=== PATIENT | male | born 1950 | race Caucasian/White ===

== ENCOUNTER → 2019-09-18 09:01 | Outpatient (CLI) | payer MEDICARE, OTHER, SELFPAY ==
--- NOTE | 2019-09-18 09:07 | DI.MRI.S_ITS ---
PROCEDURE: MR HEAD/BRAIN WO/W CON INDICATIONS: lung cancer with brain mets. TECHNIQUE: Noncontrast axial T1 spin echo, axial T2 fast spin echo, sagittal and axial FLAIR, coronal T2 fast spin echo, axial gradient echo, axial diffusion and ADC through the brain. After the administration of contrast, axial and coronal T1 spin echo with fat saturation through the brain. COMPARISON: Outside Facility, RG, MRI HEAD W/WO CONTRAST, 06/16/2019, 14:48. FINDINGS: Image quality: Excellent. CSF spaces: Basal cisterns are patent. No extra-axial fluid collections. Ventricles are normal in size and shape. Brain: No midline shift. No intracranial bleeds or masses. No abnormal intracranial enhancement. There is cerebral volume loss for age. There is periventricular white matter chronic small vessel ischemic change. The brainstem appears normal. Diffusion-weighted images demonstrate a punctate area of hyperintensity with equivocal ADC signal in the left thalamus. This corresponds to a focus of hyperintense T2 signal and no visible enhancement. No chronic ischemic insults. Normal intravascular flow voids are present. Skull and face: Calvarial marrow is normal in signal. Orbits appear normal. Sinuses: Sinuses appear clear. Mastoids demonstrate bilateral fluid. Recommend correlation central mastoiditis. IMPRESSION: 1. No areas of abnormal enhancement. 2. Punctate focus of restricted diffusion within the left thalamus with equivocal ADC signal. Finding is suspicious for T2 shine through of an old focus of infarction. Dictated by: Cheli Suggs M.D. on 09/18/2019 at 11:41 Approved by: Cheli Suggs M.D. on 09/18/2019 at 11:52
--- NOTE | 2019-09-18 10:50 | DI.CT.S_ITS ---
PROCEDURE: CT CHEST ABD PEL W CON INDICATIONS: lung cancer TECHNIQUE: After the administration of oral and intravenous contrast, 5 mm thick sections acquired from the lung apices to the symphysis. 5 mm coronal and sagittal reformats were performed, with additional 7 mm coronal MIP reformats through the lungs. For radiation dose reduction, the following was used: automated exposure control, adjustment of mA and/or kV according to patient size. COMPARISON: Outside Facility, , CT THORAX/ABDOMEN/PELVIS WITH CONTRAST, 06/16/2019, 15:45. FINDINGS: Image quality: Excellent. CHEST: Lungs and pleura: Soft tissue mass in the left anterior suprahilar region encircles and anterior left upper lobe pulmonary artery and measures approximately 4.4 x 1.7 x 4.4 cm. There is a broad-based attachment to the medial pleural surface and spiculation outer margin with a scarlike spiculation extending anterior and superior. Findings are superimposed on mild emphysematous changes. There are multiple scattered up to 8 calcifications at both lung apices. No acute airspace opacities. No pleural effusions or pneumothorax. Central and peripheral airways appear patent and normal in caliber. Mediastinum: Heart size is normal. Moderate coronary artery calcification. Minor anterior pericardial thickening. No bulky mediastinal or hilar adenopathy by size criteria. Precarinal lymph node measures 5 mm in short axis. A few flat left hilar and subcarinal lymph nodes are present. There is a minor amount of right hilar adenopathy. Thoracic aorta and central pulmonary arteries are normal in size. Normal variant retroesophageal right subclavian artery. Esophagus is normal in caliber. No hiatal hernia. Chest wall: Right IJ Mediport. No axillary or supraclavicular adenopathy by size criteria. Thyroid gland is normal. ABDOMEN: Solid organs: Liver is normal in size and enhancement. Gallbladder is normal. Biliary system is non dilated. Pancreas enhances normally. Spleen is normal in size and enhancement. 10 mm low-density, but indeterminant right adrenal nodule along the medial limb with Hounsfield units of about 35. No left adrenal nodule. Kidneys demonstrate normal size and enhancement, without hydronephrosis. Peritoneum and bowel: Bowel loops demonstrate normal wall thickness and caliber. No free fluid or air. Nodes and vessels: No retroperitoneal or mesenteric adenopathy by size criteria. Aorta and inferior vena cava are normal in size. Moderately heavy abdominal aortic calcification. Miscellaneous: No ventral hernias. PELVIS: Genitourinary: Bladder wall thickness is normal. Mild prostatomegaly. Miscellaneous: No inguinal hernias or adenopathy. Bones: No suspicious bony lesions. No vertebral body compression fractures. IMPRESSION: 1. Left suprahilar soft tissue mass measuring about 4.4 cm in maximal diameter consistent with known neoplasm. 2. Small bilateral hilar and mediastinal lymph nodes which do not meet size criteria for adenopathy. 3. 10 mm indeterminate right adrenal nodule, likely an adenoma, but indeterminant with the presence of contrast. Further evaluation with adrenal protocol CT or MRI is recommended. 4. No other evidence of metastatic disease below the diaphragm. Dictated by: Mohini Thomas M.D. on 09/18/2019 at 10:35 Approved by: Mohini Thomas M.D. on 09/18/2019 at 11:19
== END ==
PROVIDERS: Referring Provider Internal Medicine Hematology & Oncology; Visit Provider Internal Medicine Hematology & Oncology
DX: C34.02 Malignant neoplasm of left main bronchus (principal); C79.31 Secondary malignant neoplasm of brain; E27.9 Disorder of adrenal gland, unspecified; I25.10 Atherosclerotic heart disease of native coronary artery without angina pectoris
CPT/HCPCS: 70553; 71260; 74177; A9579; Q9967

== ENCOUNTER → 2019-10-26 12:21 | Outpatient (CLI) | payer MEDICARE, OTHER, SELFPAY ==
--- NOTE | 2019-10-26 12:24 | DI.RAD.S_ITS ---
PROCEDURE: XR CHEST 2V INDICATIONS: Cough TECHNIQUE: 2 views of the chest were acquired. COMPARISON: None. FINDINGS: Surgical changes and devices: There is a right-sided Port-A-Cath central line identified with the tip overlying the low superior vena cava. Lungs and pleura: Pulmonary hyperexpansion is evident with flattening of the diaphragms and increased lucency within the retrosternal clear space. No focal consolidation, effusion, or pneumothorax is evident. Mediastinum: Mediastinal contours are normal. Heart size is normal. Bones and chest wall: No suspicious bony abnormalities. Soft tissues appear unremarkable. IMPRESSION: No acute cardiopulmonary process is evident. Dictated by: Laith Avendaño M.D. on 10/26/2019 at 12:35 Approved by: Laith Avendaño M.D. on 10/26/2019 at 12:37
[2019-10-27 06:02] LABS: COVID19 Sendout Not Detected (Not Detect)
== END ==
PROVIDERS: Referring Provider Registered Nurse; Visit Provider Registered Nurse
DX: R05 Cough (principal); R06.02 Shortness of breath
CPT/HCPCS: 71046; 87635

== ENCOUNTER → 2019-12-04 09:42 | Outpatient (CLI) | payer MEDICARE, OTHER, SELFPAY ==
--- NOTE | 2019-12-04 10:48 | DI.CT.S_ITS ---
PROCEDURE: CT CHEST ABD PEL W CON INDICATIONS: lung cancer TECHNIQUE: After the administration of oral and intravenous contrast, 5 mm thick sections acquired from the lung apices to the symphysis. 5 mm coronal and sagittal reformats were performed, with additional 7 mm coronal MIP reformats through the lungs. For radiation dose reduction, the following was used: automated exposure control, adjustment of mA and/or kV according to patient size. COMPARISON: Outside Facility, RG, MRI HEAD W/WO CONTRAST, 06/16/2019, 14:48. Outside Facility, RG, CT THORAX/ABDOMEN/PELVIS WITH CONTRAST, 06/16/2019, 15:45. [facility], CT, CT CHEST ABD PEL W CON, 09/18/2019, 10:08. FINDINGS: Image quality: Excellent. CHEST: Lungs and pleura: No acute airspace opacities. There is stable soft tissue prominence at the superior third of the left hilum measuring up to 2.5 x 1.7 cm in maximal AP and transverse dimensions, but does appear to have diminished in craniocaudad length having previously measured 4.4 cm and currently measuring 3.3 cm. This was measured in this same areas on 09/18/19. No pleural effusions or pneumothorax. Central and peripheral airways appear patent and normal in caliber. Mediastinum: Heart size is normal. No pericardial effusion. No mediastinal or hilar adenopathy by size criteria. Thoracic aorta and central pulmonary arteries are normal in size. Esophagus is normal in caliber. No hiatal hernia. Chest wall: No axillary or supraclavicular adenopathy by size criteria. Thyroid gland appears normal. ABDOMEN: Solid organs: Liver is normal in size and enhancement. Gallbladder appears normal. Biliary system is non dilated. Pancreas enhances normally. Spleen is normal in size and enhancement. No adrenal nodules, and a previously suspected right adrenal nodule is no longer seen. Kidneys demonstrate normal size and enhancement, without hydronephrosis. Peritoneum and bowel: Bowel loops demonstrate normal wall thickness and caliber. No free fluid or air. Nodes and vessels: No retroperitoneal or mesenteric adenopathy by size criteria. Aorta and inferior vena cava are normal in size. Miscellaneous: No ventral hernias. PELVIS: Genitourinary: Bladder wall thickness is normal. Miscellaneous: No inguinal hernias or adenopathy. Bones: No suspicious bony lesions. No vertebral body compression fractures. IMPRESSION: 1. Small interval reduction in size of a left superior hilar mass, best seen on coronal imaging as a reduction in craniocaudad height to a small degree. 2. A prior slight prominence of the medial limb of the right adrenal gland was present and no longer is seen. This would suggest that the prior soft tissue prominence did in fact represent an area of early metastatic disease. 3. Throughout the visualized examination elsewhere no evidence of metastatic disease is found. Dictated by: Ace Almendarez M.D. on 12/04/2019 at 12:16 Approved by: Ace Almendarez M.D. on 12/04/2019 at 12:37
== END ==
PROVIDERS: Referring Provider Internal Medicine Hematology & Oncology; Visit Provider Internal Medicine Hematology & Oncology
DX: C34.12 Malignant neoplasm of upper lobe, left bronchus or lung (principal); C79.31 Secondary malignant neoplasm of brain
CPT/HCPCS: 36591; 71260; 74177; 80053; 85025; Q9967

== ENCOUNTER → 2020-02-18 09:23 | Outpatient (CLI) | payer MEDICARE, OTHER, SELFPAY ==
--- NOTE | 2020-02-18 09:26 | DI.CT.S_ITS ---
PROCEDURE: CT CHEST ABD PEL W CON INDICATIONS: lung cancer TECHNIQUE: After the administration of oral and intravenous contrast, 5 mm thick sections acquired from the lung apices to the symphysis. 5 mm coronal and sagittal reformats were performed, with additional 7 mm coronal MIP reformats through the lungs. For radiation dose reduction, the following was used: automated exposure control, adjustment of mA and/or kV according to patient size. COMPARISON: [facility], CT, CT CHEST ABD PEL W CON, 09/18/2019, 10:08. [facility], CT, CT CHEST ABD PEL W CON, 12/04/2019, 10:32. FINDINGS: Image quality: Excellent. CHEST: Lungs and pleura: Left suprahilar mass appears slightly increased in size compared to the prior study, measuring up to 4.6 x 1.9 x 3.2 cm compared to approximately 4.3 x 1.6 by 3.2 cm previously at comparable levels. This may also reflect a component of post radiation changes. There is associated encasement of left hilar bronchovascular structures again noted. With associated occlusion of small medial left upper lobe subsegmental bronchi. No definite new suspicious mass lesions on nodules. There are severe centrilobular emphysematous changes redemonstrated. No pleural effusions or pneumothorax. Central and peripheral airways appear patent and normal in caliber. Mediastinum: There is a right chest wall internal jugular Port-A-Cath with the tip extending to the cavoatrial junction. Heart size is normal. No pericardial effusion. No mediastinal or hilar adenopathy by size criteria. Thoracic aorta and central pulmonary arteries are normal in size. Esophagus is normal in caliber. There is a small hiatal hernia. Chest wall: No axillary or supraclavicular adenopathy by size criteria. ABDOMEN: Solid organs: Evaluation of the liver demonstrates no focal hepatic lesions. The gallbladder appears within normal limits without calcified gallstones. Biliary system is non-dilated. Pancreas enhances normally. No peripancreatic fat stranding or fluid collections. No pancreatic duct dilatation. The spleen is normal in size. No adrenal nodules. Kidneys demonstrate no hydronephrosis. Peritoneum and bowel: Bowel loops demonstrate normal wall thickness and caliber. There is colonic diverticulosis without acute diverticulitis. No free fluid or air. Nodes and vessels: No retroperitoneal or mesenteric adenopathy by size criteria. Aorta and inferior vena cava are normal in size. Miscellaneous: No ventral hernias. PELVIS: Genitourinary: Bladder wall thickness is normal. Miscellaneous: No inguinal hernias or adenopathy. Bones: No suspicious bony lesions. No vertebral body compression fractures. IMPRESSION: 1. Left suprahilar mass demonstrates slight interval increase in size although a component of this may reflect postradiation changes. Recommend continued attention on follow-up. 2. Elsewhere, no definite evidence of new metastatic disease. Dictated by: Tanner Caballero M.D. on 02/18/2020 at 17:08 Approved by: Tanner Caballero M.D. on 02/18/2020 at 17:16
== END ==
PROVIDERS: PCP Family Medicine; Referring Provider Internal Medicine Hematology & Oncology; Visit Provider Internal Medicine Hematology & Oncology
DX: C34.92 Malignant neoplasm of unspecified part of left bronchus or lung (principal)
CPT/HCPCS: 71260; 74177; Q9967

== ENCOUNTER → 2020-02-26 08:40 | Oncology outpatient (ONC) | payer MEDICARE, OTHER, SELFPAY ==
--- NOTE | 2019-06-30 13:12 | ONC.CONS ---
History of Present Illness - Data of Consult Patient: new to practice Consult date: 06/30/19 Requesting Physician: Dr. Tr Martins Primary Care Provider: Tr Alberts - Consult Narrative Reason for consult: Metastatic left upper lung adenocarcinoma Narrative: Kin Campbell is a 68 year old male with post significant smoking history (quitted about in 2009), and COPD. He just moved to [facility] from [facility] yesterday. He has been followed at [facility] for metastatic left upper lung adenocarcinoma. Kin initially presented with sudden onset left extremity weakness and headache in 05/2018. MR brain on 05/31/2018 showed a 2.1 cm mass in the right posterior parietal lobe with hemorrhage. CT CAP on 06/01/2018 showed a large left suprahilar/paramediastinal mass with extension to the mediastinum and moderate mediastinal adenopathy. There was a 2.5 cm right adrenal mass. He was flown to [facility] on 06/01/2018. He underwent EBUS/FNA on 06/03/2018 and pathology showed malignant epithelial cells consistent with poorly differentiated adenocarcinoma PD-L1 < 1%. EGFR, ALK, MET and RET were negative. He later proceeded to whole brain radiation therapy completed on 06/28/2018. He then was treated with carboplatin (AUC 4), pemetrexed (500mg/2), and pembrolizumab (200 mg) q21 days x 4 cycles followed by Pembrolizumab maintenance On 12/26/2018, CT CAP showed evidence of disease progression including increase in th esize of left upper lobe mass, mediastinal lymphadenopathy, and right adrenal gland nodule. Pembolizumab was then discontinued and patient was started on single agent Gemcitabine 1000 mg/m2 iv on days 1, 8, 15 on a 21-days cycles on 01/03/2019. Repeat CT on 03/18/2019 showed decrease in the ADRIA mass and the right adrenal lesion. His last chemotherapy was on 05/23/2019 before he moved to [place]. On 06/16/2019 MRI brain showed stable brain lesions CT CAP showed interval decrease in size of left upper lobe mass, mediastinal lymphadenopathy, and right adrenal gland. He presented today to establish care and to discuss continuation of the chemotherapy. He has low energy level, but he is able to ambulate. He is using O2 at night, 2 LNC. No chest pain. He has headache once a while. His right eye has been cloudy. Ophthalmology suspicious of ischemic optic neuropathy. No bone pain. Appetite is good. No n/v. No diarrhea or constipation. No tingling or numbing of hands or feet. CC: Jayson Saleem MD Home Medications and Allergies Home Medications Medication Instructions Recorded Confirmed Type acetaminophen 1,000 mg PO Q6H PRN 06/30/19 06/30/19 History albuterol sulfate 2.5 mg INHALATION Q6H PRN 06/30/19 06/30/19 History albuterol sulfate [Ventolin HFA] 2 puff INHALATION 6XD PRN 06/30/19 06/30/19 History fluticasone propion-salmeterol 1 inh INHALATION BID 06/30/19 06/30/19 History [Advair Diskus] ibuprofen 200 mg PO Q6H PRN 06/30/19 06/30/19 History lidocaine-prilocaine applic 06/30/19 History Allergies Allergy/AdvReac Type Severity Reaction Status Date / Time No Known Drug Allergies Allergy Verified 06/30/19 13:19 Medical History - Medical, Surgical, Family History Medical History: Medical History (Last Updated 06/30/19 @ 13:19 by Jayson Saleem MD) COPD (chronic obstructive pulmonary disease) Surgical History: Surgical History (Last Updated 06/30/19 @ 13:20 by Jayson Saleem MD) H/O foot surgery History of hernia repair Family History: Family History (Last Updated 06/30/19 @ 13:23 by Jayson Saleem MD) Mother Stroke Father Diabetes mellitus - Social History Smoking Status: Former smoker (quitted about 2009. Used to take 2 ppd.) Substance Use Type: does not use Alcohol Intake: current (a couple of beers every day.) Review of Systems All systems PM: reviewed and no additional remarkable complaints except as stated Exam Vital signs: Last Vital Signs Temp 97.9 F 06/30/19 13:29 Pulse 69 06/30/19 13:29 Resp 16 06/30/19 13:29 BP 104/68 06/30/19 13:29 Pulse Ox 93 06/30/19 13:29 ECOG 1 Narrative: Gen: WDWN, NAD, pleasant and cooperative, accompanied by his . HEENT: NCAT, EOMI, PERRLA, anicteric sclera. Neck: Supple, No palpable thyromegaly or lymphadenopathy. Respiratory: decreased BS, no wheezes audible. Cardiovascular: RRR, S1 and S2 normal, no M/G/R. Abdomen: Soft, NTND, BS normal, no palpable organomegaly Extremities: No LE pitting edema. Lymphatic: no palpable lymph nodes in the neck, axillae, or groins. Neurological: AOx3, CN II-XII grossly intact. No focal motor or sensory deficit. Psychiatric: Normal affect; normal thought process; no depression. Results - Labs Pending. Assessment and Plan (1) Adenocarcinoma of left lung, stage 4 Overview: Stage IV left upper lung poorly differentiated adenocarcinoma, PD-L1 < 1%. EGFR, ALK, MET and RET were negative, diagnosed in 05/2018. He underwent whole radiation therapy on 06/28/2018, then received carboplatin (AUC 4), pemetrexed (500mg/2), and pembrolizumab (200 mg) q21 days x 4 cycles followed by Pembrolizumab maintenance. Due to disease progression, patient was started on single agent gemcitabine since 01/03/2019. Assessment: He has already been informed of the most recent imaging studies obtained on 06/16/2019. Based on the results, patient has a stable or slightly decreased tumor size. I talked with him and his that I will continue current treatment and will monitor closely. Patient voiced understanding. Plan: 1. Continue Gemcitabine as follows 1000 mg/m2 on day 1, 8, 15 every 28 days 2. Referral to radiation oncology to establish care 3. RTC on D1 of next cycle, labs per protocol.
[2019-06-30 13:29] VITALS: BP 104/68; PULSE 69; RESP 16; TEMP 36.6; O2SAT 93
[2019-07-03 11:12] LABS: Add Manual Diff / Slide Review NO; Basophils Absolute Auto 100 /uL (0-100); Basophils Percent Auto 1.2 % (0-2); Eosinophils Absolute Auto 200 /uL (0-450); Eosinophils Percent Auto 3.7 % (2-4); Hematocrit 43.7 % (41-53); Hemoglobin 15.1 g/dL (13.5-17.5); Lymphocytes Absolute Auto 1500 /uL (1100-4500); Lymphocytes Percent Auto 23.1 % (25-40); Mean Corpuscular HGB Conc 34.5 % (30-36); Mean Corpuscular Hemoglobin 31.5 PG (26-34); Mean Corpuscular Volume 91.4 fL (80-100); Monocytes Absolute Auto 500 /uL (0-900); Monocytes Percent Auto 8.3 % (3-14); Neutrophils Absolute Auto 4100 /uL (1500-7000); Neutrophils Percent Auto 63.7 % (50-75); Platelet Count 230 X10^3/uL (150-400); Red Blood Cell Count 4.78 X10^6/uL (4.5-5.9); Red Cell Distribution Width 15.4 % (11.6-14.8); White Blood Cell Count 6.4 X10^3/uL (4.5-11.0)
[2019-07-03 11:22] LABS: Alanine Aminotransferase 42 IU/L (<50); Albumin 4.1 g/dL (3.5-5.0); Albumin Globulin Ratio 1.3 (1.0-2.8); Alkaline Phosphatase 74 U/L (38-126); Aspartate Aminotransferase 30 IU/L (17-59); Bilirubin Total 0.5 mg/dL (0.2-1.3); Blood Urea Nitrogen 14 mg/dL (9-20); Calcium 8.9 mg/dL (8.4-10.2); Carbon Dioxide 27 mmol/L (22-32); Chloride 103 mmol/L (98-107); Estimated Glomerular Filt Rate > 60.0 mL/min (>60); Globulin 3.1 g/dL (1.7-4.1); Glucose 118 mg/dL (80-110); HEMOLYSIS < 15 (0-50); Potassium 4.4 mmol/L (3.4-5.1); Sodium 137 mmol/L (137-145); Total Protein 7.2 g/dL (6.3-8.2)
[2019-07-03 11:24] VITALS: BP 103/67; PULSE 63; RESP 18; TEMP 36.8; O2SAT 93
[2019-07-03] MEDS: DEXAMETHASONE 10 MG/ML VIAL 8 MG IV (12:25)
[2019-07-03] MEDS: SODIUM CHLORIDE 0.9% 100 ML 21 ML IV (12:58)
[2019-07-03] MEDS: ONDANSETRON 8 MG in SODIUM CHLORIDE 0.9% 50 ML 216 ML IV (12:58)
[2019-07-03] MEDS: SODIUM CHLORIDE 0.9% IV (13:32)
[2019-07-03] MEDS: GEMCITABINE HCL IV (13:32)
[2019-07-10 11:06] LABS: Add Manual Diff / Slide Review NO; Basophils Absolute Auto 100 /uL (0-100); Basophils Percent Auto 1.3 % (0-2); Eosinophils Absolute Auto 0 /uL (0-450); Hematocrit 41.7 % (41-53); Hemoglobin 14.1 g/dL (13.5-17.5); Lymphocytes Absolute Auto 1400 /uL (1100-4500); Lymphocytes Percent Auto 36.4 % (25-40); Mean Corpuscular HGB Conc 33.7 % (30-36); Mean Corpuscular Hemoglobin 30.8 PG (26-34); Mean Corpuscular Volume 91.5 fL (80-100); Monocytes Absolute Auto 200 /uL (0-900); Monocytes Percent Auto 4.2 % (3-14); Neutrophils Absolute Auto 2200 /uL (1500-7000); Neutrophils Percent Auto 57.1 % (50-75); Platelet Count 159 X10^3/uL (150-400); Red Blood Cell Count 4.56 X10^6/uL (4.5-5.9); Red Cell Distribution Width 14.9 % (11.6-14.8); White Blood Cell Count 3.9 X10^3/uL (4.5-11.0)
[2019-07-10 11:21] LABS: Alanine Aminotransferase 70 IU/L (<50); Albumin Globulin Ratio 1.3 (1.0-2.8); Alkaline Phosphatase 81 U/L (38-126); Aspartate Aminotransferase 39 IU/L (17-59); BUN Creatinine Ratio 25.7 (6-22); Bilirubin Total 0.4 mg/dL (0.2-1.3); Blood Urea Nitrogen 18 mg/dL (9-20); Calcium 8.6 mg/dL (8.4-10.2); Carbon Dioxide 23 mmol/L (22-32); Chloride 103 mmol/L (98-107); Estimated Glomerular Filt Rate > 60.0 mL/min (>60); Glucose 109 mg/dL (80-110); HEMOLYSIS < 15 (0-50); Potassium 4.1 mmol/L (3.4-5.1); Sodium 136 mmol/L (137-145)
[2019-07-10 11:49] VITALS: BP 115/80; PULSE 64; RESP 16; TEMP 36.4; O2SAT 96
[2019-07-10] MEDS: DEXAMETHASONE 10 MG/ML VIAL 8 MG IV (12:07)
[2019-07-10] MEDS: SODIUM CHLORIDE 0.9% 100 ML 21 ML IV (12:08)
[2019-07-10] MEDS: ONDANSETRON 8 MG in SODIUM CHLORIDE 0.9% 50 ML 216 ML IV (12:13)
[2019-07-10] MEDS: SODIUM CHLORIDE 0.9% IV (13:03)
[2019-07-10] MEDS: GEMCITABINE HCL IV (13:03)
[2019-07-17 10:53] LABS: Add Manual Diff / Slide Review NO; Basophils Absolute Auto 0 /uL (0-100); Basophils Percent Auto 0.5 % (0-2); Eosinophils Absolute Auto 0 /uL (0-450); Eosinophils Percent Auto 0.3 % (2-4); Hematocrit 40.6 % (41-53); Lymphocytes Absolute Auto 1300 /uL (1100-4500); Lymphocytes Percent Auto 39.6 % (25-40); Mean Corpuscular HGB Conc 34.5 % (30-36); Mean Corpuscular Hemoglobin 30.9 PG (26-34); Mean Corpuscular Volume 89.8 fL (80-100); Monocytes Absolute Auto 100 /uL (0-900); Monocytes Percent Auto 1.9 % (3-14); Neutrophils Absolute Auto 1900 /uL (1500-7000); Neutrophils Percent Auto 57.7 % (50-75); Platelet Count 100 X10^3/uL (150-400); Red Blood Cell Count 4.52 X10^6/uL (4.5-5.9); Red Cell Distribution Width 14.2 % (11.6-14.8); White Blood Cell Count 3.3 X10^3/uL (4.5-11.0)
[2019-07-17 11:06] LABS: Alanine Aminotransferase 69 IU/L (<50); Albumin Globulin Ratio 1.3 (1.0-2.8); Alkaline Phosphatase 71 U/L (38-126); Aspartate Aminotransferase 40 IU/L (17-59); BUN Creatinine Ratio 24.3 (6-22); Bilirubin Total 0.5 mg/dL (0.2-1.3); Blood Urea Nitrogen 17 mg/dL (9-20); Carbon Dioxide 27 mmol/L (22-32); Chloride 101 mmol/L (98-107); Estimated Glomerular Filt Rate > 60.0 mL/min (>60); Globulin 3.1 g/dL (1.7-4.1); Glucose 115 mg/dL (80-110); HEMOLYSIS < 15 (0-50); Sodium 137 mmol/L (137-145); Total Protein 7.1 g/dL (6.3-8.2)
[2019-07-17 11:31] VITALS: BP 104/63; PULSE 61; RESP 16; TEMP 36.5; O2SAT 95
[2019-07-17] MEDS: ONDANSETRON 8 MG in SODIUM CHLORIDE 0.9% 50 ML 216 ML IV (11:34)
[2019-07-17] MEDS: DEXAMETHASONE 10 MG/ML VIAL 8 MG IV (11:34)
[2019-07-17] MEDS: SODIUM CHLORIDE 0.9% 100 ML 21 ML IV (11:35)
[2019-07-17] MEDS: SODIUM CHLORIDE 0.9% IV (12:22)
[2019-07-17] MEDS: GEMCITABINE HCL IV (12:22)
[2019-07-31 10:48] LABS: Alanine Aminotransferase 41 IU/L (<50); Albumin 3.9 g/dL (3.5-5.0); Albumin Globulin Ratio 1.3 (1.0-2.8); Alkaline Phosphatase 87 U/L (38-126); Aspartate Aminotransferase 41 IU/L (17-59); BUN Creatinine Ratio 27.1 (6-22); Bilirubin Total 0.4 mg/dL (0.2-1.3); Blood Urea Nitrogen 19 mg/dL (9-20); Carbon Dioxide 28 mmol/L (22-32); Chloride 102 mmol/L (98-107); Estimated Glomerular Filt Rate > 60.0 mL/min (>60); Globulin 3.1 g/dL (1.7-4.1); Glucose 125 mg/dL (80-110); HEMOLYSIS 38 (0-50); Sodium 137 mmol/L (137-145)
[2019-07-31 10:55] LABS: Hemoglobin 12.4 g/dL (13.5-17.5); Mean Corpuscular HGB Conc 34.4 % (30-36); Mean Corpuscular Hemoglobin 30.8 PG (26-34); Mean Corpuscular Volume 89.5 fL (80-100); Platelet Count 685 X10^3/uL (150-400); Red Blood Cell Count 4.02 X10^6/uL (4.5-5.9); Red Cell Distribution Width 14.6 % (11.6-14.8); White Blood Cell Count 5.1 X10^3/uL (4.5-11.0)
[2019-07-31 11:00] LABS: Add Manual Diff / Slide Review YES
--- NOTE | 2019-07-31 11:14 | ONC.PN ---
PN -Subjective Interval history: ID/CC: 68-year-old gentleman with metastatic adeno carcinoma of the lung. History of Present Illness: Kin Campbell is a 68 year old male with past significant smoking history (quitted about in 2009), and COPD. He just moved to [facility] from [facility]. He has been followed at [facility] for metastatic left upper lung adenocarcinoma. Kin initially presented with sudden onset left extremity weakness and headache in 05/2018. MR brain on 05/31/2018 showed a 2.1 cm mass in the right posterior parietal lobe with hemorrhage. CT CAP on 06/01/2018 showed a large left suprahilar/paramediastinal mass with extension to the mediastinum and moderate mediastinal adenopathy. There was a 2.5 cm right adrenal mass. He was flown to [facility] on 06/01/2018. He underwent EBUS/FNA on 06/03/2018 and pathology showed malignant epithelial cells consistent with poorly differentiated adenocarcinoma PD-L1 < 1%. EGFR, ALK, MET and RET were negative. He later proceeded to whole brain radiation therapy completed on 06/28/2018. He then was treated with carboplatin (AUC 4), pemetrexed (500mg/2), and pembrolizumab (200 mg) q21 days x 4 cycles followed by Pembrolizumab maintenance On 12/26/2018, CT CAP showed evidence of disease progression including increase in th esize of left upper lobe mass, mediastinal lymphadenopathy, and right adrenal gland nodule. Pembolizumab was then discontinued and patient was started on single agent Gemcitabine 1000 mg/m2 iv on days 1, 8, 15 on a 21-days cycles on 01/03/2019. Repeat CT on 03/18/2019 showed decrease in the ADRIA mass and the right adrenal lesion. His last chemotherapy was on 05/23/2019 before he moved to [place]. On 06/16/2019 MRI brain showed stable brain lesions CT CAP showed interval decrease in size of left upper lobe mass, mediastinal lymphadenopathy, and right adrenal gland. He presented today to establish care and to discuss continuation of the chemotherapy. Interim Events: Since his previous visit, patient completed 1 cycle of gemcitabine. Overall he has tolerated well. He denies any fever or chills. He denies any bleeding events. Patient said that the shortness of breath has remained about the same. He denies any new onset headache. He denies any new onset chest pain. Patient reports very good appetite. The weight has been remaining stable. No new bone pain. Patient recently has seen a medical affairs manager for ?ischemic optic neuropathy?. - Patient Self-Reported Symptoms SR Constitution: Fatigue/Malaise SR eye issues: Vision changes SR ears, nose, mouth, throat issues: Cough SR respiratory issues: Cough, Shortness of breath, Mucous SR Cardiovascular issues: Shortness of breath with activity or lying flat SR Skin issues: Dry skin - Additional ROS All systems PM: reviewed and no additional remarkable complaints except as stated Home Medications and Allergies Home Medications Medication Instructions Recorded Confirmed Type acetaminophen 1,000 mg PO Q6H PRN 06/30/19 06/30/19 History albuterol sulfate 2.5 mg INHALATION Q6H PRN 06/30/19 06/30/19 History albuterol sulfate [Ventolin HFA] 2 puff INHALATION 6XD PRN 06/30/19 06/30/19 History fluticasone propion-salmeterol 1 inh INHALATION BID 06/30/19 06/30/19 History [Advair Diskus] ibuprofen 200 mg PO Q6H PRN 06/30/19 06/30/19 History lidocaine-prilocaine applic 06/30/19 History Allergies Allergy/AdvReac Type Severity Reaction Status Date / Time No Known Drug Allergies Allergy Verified 06/30/19 13:19 Exam Vital signs: 07/31/19 11:31 Last Vital Signs Temp 98.1 F 07/31/19 11:20 Pulse 63 07/31/19 11:20 Resp 16 07/31/19 11:20 BP 110/68 07/31/19 11:20 Pulse Ox 92 07/31/19 11:20 Narrative: ECOG 1 Gen: WDWN, NAD, pleasant and cooperative, accompanied by his . HEENT: NCAT, EOMI, PERRLA, anicteric sclera. Neck: Supple, No palpable thyromegaly or lymphadenopathy. Respiratory: decreased BS, no wheezes audible. Cardiovascular: RRR, S1 and S2 normal, no M/G/R. Abdomen: Soft, NTND, BS normal, no palpable organomegaly Extremities: No LE pitting edema. Lymphatic: no palpable lymph nodes in the neck, axillae, or groins. Neurological: AOx3, CN II-XII grossly intact. No focal motor or sensory deficit. Psychiatric: Normal affect; normal thought process; no depression. Results - Labs Laboratory Last Values WBC 5.1 X10^3/uL (4.5-11.0) 07/31/19 10:22 RBC 4.02 X10^6/uL (4.5-5.9) L 07/31/19 10:22 Hgb 12.4 g/dL (13.5-17.5) L 07/31/19 10:22 Hct 36.0 % (41-53) L 07/31/19 10:22 MCV 89.5 fL (80-100) 07/31/19 10:22 MCH 30.8 PG (26-34) 07/31/19 10:22 MCHC 34.4 % (30-36) 07/31/19 10:22 RDW 14.6 % (11.6-14.8) 07/31/19 10:22 Plt Count 685 X10^3/uL (150-400) H 07/31/19 10:22 Neut % (Auto) Not Reportable 07/31/19 10:22 Lymph % (Auto) Not Reportable 07/31/19 10:22 [place] % (Auto) Not Reportable 07/31/19 10:22 Eos % (Auto) Not Reportable 07/31/19 10:22 Baso % (Auto) Not Reportable 07/31/19 10:22 Neut # (Auto) 1900 /uL (6434-1451) 07/17/19 10:35 Lymph # (Auto) Not Reportable 07/31/19 10:22 [place] # (Auto) Not Reportable 07/31/19 10:22 Eos # (Auto) 0 /uL (0-450) 07/17/19 10:35 Baso # (Auto) Not Reportable 07/31/19 10:22 Sodium 137 mmol/L (137-145) 07/31/19 10:22 Potassium 4.0 mmol/L (3.4-5.1) 07/31/19 10:22 Chloride 102 mmol/L (98-107) 07/31/19 10:22 Carbon Dioxide 28 mmol/L (22-32) 07/31/19 10:22 BUN 19 mg/dL (9-20) 07/31/19 10:22 Creatinine 0.70 mg/dL (0.66-1.25) 07/31/19 10:22 Estimated GFR > 60.0 mL/min (>60) 07/31/19 10:22 BUN/Creatinine Ratio 27.1 (6-22) H 07/31/19 10:22 Glucose 125 mg/dL (80-110) H 07/31/19 10:22 Calcium 9.0 mg/dL (8.4-10.2) 07/31/19 10:22 Total Bilirubin 0.4 mg/dL (0.2-1.3) 07/31/19 10:22 AST 41 IU/L (17-59) 07/31/19 10:22 ALT 41 IU/L (<50) 07/31/19 10:22 Alkaline Phosphatase 87 U/L (38-126) 07/31/19 10:22 Total Protein 7.0 g/dL (6.3-8.2) 07/31/19 10:22 Albumin 3.9 g/dL (3.5-5.0) 07/31/19 10:22 Globulin 3.1 g/dL (1.7-4.1) 07/31/19 10:22 Albumin/Globulin Ratio 1.3 (1.0-2.8) 07/31/19 10:22 Assessment and Plan (1) Adenocarcinoma of left lung, stage 4 Overview: Stage IV left upper lung poorly differentiated adenocarcinoma, PD-L1 < 1%. EGFR, ALK, MET and RET were negative, diagnosed in 05/2018. He underwent whole brain radiation therapy on 06/28/2018, then received carboplatin (AUC 4), pemetrexed (500mg/2), and pembrolizumab (200 mg) q21 days x 4 cycles followed by Pembrolizumab maintenance. Due to disease progression, patient was started on single agent gemcitabine since 01/03/2019. Assessment: He has already been informed of the most recent imaging studies obtained on 06/16/2019. Based on the results, patient has a stable or slightly decreased tumor size. I talked with him and his that I will continue current treatment and will monitor closely. Patient voiced understanding. Patient has ?ischemic optic neuropathy?. I talked with them that it could be related to previous whole-brain radiation therapy. Patient is scheduled to see an medical affairs manager at [facility]. Plan: 1. Ok to proceed to Gemcitabine today, and continue: 1000 mg/m2 on day 1, 8, 15 every 28 days 2. Follow up with medical affairs manager as scheduled. 3. RTC on D1 of next cycle, labs per protocol.
[2019-07-31 11:20] VITALS: BP 110/68; PULSE 63; RESP 16; TEMP 36.7; O2SAT 92
[2019-07-31 11:20] LABS: Neutrophils Absolute Manual 2550 /uL (3000-5900); Total Cells Counted 100
[2019-07-31 11:21] LABS: Platelet Estimate Increased on smear; RBC Morphology Normal Morphology
[2019-07-31] MEDS: ONDANSETRON 8 MG in SODIUM CHLORIDE 0.9% 50 ML 216 ML IV (11:48)
[2019-07-31] MEDS: SODIUM CHLORIDE 0.9% 100 ML 30 ML IV (11:48)
[2019-07-31] MEDS: DEXAMETHASONE 10 MG/ML VIAL 8 MG IV (11:48)
[2019-07-31] MEDS: GEMCITABINE HCL IV (12:14)
[2019-07-31] MEDS: SODIUM CHLORIDE 0.9% IV (12:14)
--- NOTE | 2019-07-31 12:47 | ONC.MSW ---
*Pt received a Chemo Quilt.
[2019-08-07 10:57] VITALS: BP 120/51; PULSE 68; RESP 16; TEMP 37.1; O2SAT 93
[2019-08-07 10:58] LABS: Add Manual Diff / Slide Review YES; Hematocrit 36.4 % (41-53); Hemoglobin 12.3 g/dL (13.5-17.5); Mean Corpuscular HGB Conc 33.9 % (30-36); Mean Corpuscular Hemoglobin 30.6 PG (26-34); Mean Corpuscular Volume 90.4 fL (80-100); Platelet Count 501 X10^3/uL (150-400); Red Blood Cell Count 4.02 X10^6/uL (4.5-5.9); Red Cell Distribution Width 14.8 % (11.6-14.8)
[2019-08-07 11:08] LABS: Alanine Aminotransferase 77 IU/L (<50); Albumin 3.9 g/dL (3.5-5.0); Albumin Globulin Ratio 1.3 (1.0-2.8); Alkaline Phosphatase 101 U/L (38-126); Aspartate Aminotransferase 37 IU/L (17-59); BUN Creatinine Ratio 23.3 (6-22); Bilirubin Total 0.3 mg/dL (0.2-1.3); Blood Urea Nitrogen 14 mg/dL (9-20); Calcium 8.8 mg/dL (8.4-10.2); Carbon Dioxide 26 mmol/L (22-32); Chloride 105 mmol/L (98-107); Estimated Glomerular Filt Rate > 60.0 mL/min (>60); Globulin 3.1 g/dL (1.7-4.1); Glucose 133 mg/dL (80-110); HEMOLYSIS < 15 (0-50); Potassium 4.1 mmol/L (3.4-5.1); Sodium 139 mmol/L (137-145)
[2019-08-07 11:21] LABS: Neutrophils Absolute Manual 1040 /uL (3000-5900); RBC Morphology Normal Morphology; Total Cells Counted 100
[2019-08-07] MEDS: DEXAMETHASONE 10 MG/ML VIAL 8 MG IV (11:43)
[2019-08-07] MEDS: ONDANSETRON 8 MG in SODIUM CHLORIDE 0.9% 50 ML 216 ML IV (11:43)
[2019-08-07] MEDS: SODIUM CHLORIDE 0.9% 100 ML 21 ML IV (11:43)
[2019-08-07] MEDS: GEMCITABINE HCL IV (12:11)
[2019-08-07] MEDS: SODIUM CHLORIDE 0.9% IV (12:11)
[2019-08-14 10:43] VITALS: BP 114/69; PULSE 68; RESP 16; TEMP 36.8; O2SAT 96
[2019-08-14 10:48] LABS: Add Manual Diff / Slide Review NO; Basophils Absolute Auto 0 /uL (0-100); Eosinophils Absolute Auto 0 /uL (0-450); Eosinophils Percent Auto 0.2 % (2-4); Hematocrit 35.6 % (41-53); Hemoglobin 12.3 g/dL (13.5-17.5); Lymphocytes Absolute Auto 1400 /uL (1100-4500); Mean Corpuscular HGB Conc 34.5 % (30-36); Mean Corpuscular Hemoglobin 31.2 PG (26-34); Mean Corpuscular Volume 90.4 fL (80-100); Monocytes Absolute Auto 300 /uL (0-900); Monocytes Percent Auto 7.1 % (3-14); Neutrophils Absolute Auto 2800 /uL (1500-7000); Neutrophils Percent Auto 61.7 % (50-75); Platelet Count 233 X10^3/uL (150-400); Red Blood Cell Count 3.93 X10^6/uL (4.5-5.9); Red Cell Distribution Width 15.8 % (11.6-14.8); White Blood Cell Count 4.6 X10^3/uL (4.5-11.0)
[2019-08-14 10:57] LABS: Alanine Aminotransferase 86 IU/L (<50); Albumin 3.8 g/dL (3.5-5.0); Albumin Globulin Ratio 1.4 (1.0-2.8); Alkaline Phosphatase 87 U/L (38-126); Aspartate Aminotransferase 41 IU/L (17-59); BUN Creatinine Ratio 23.3 (6-22); Bilirubin Total 0.3 mg/dL (0.2-1.3); Blood Urea Nitrogen 14 mg/dL (9-20); Calcium 8.5 mg/dL (8.4-10.2); Carbon Dioxide 26 mmol/L (22-32); Chloride 104 mmol/L (98-107); Estimated Glomerular Filt Rate > 60.0 mL/min (>60); Globulin 2.8 g/dL (1.7-4.1); Glucose 159 mg/dL (80-110); HEMOLYSIS < 15 (0-50); Sodium 137 mmol/L (137-145); Total Protein 6.6 g/dL (6.3-8.2)
[2019-08-14] MEDS: SODIUM CHLORIDE 0.9% 100 ML 21 ML IV (11:45)
[2019-08-14] MEDS: DEXAMETHASONE 10 MG/ML VIAL 8 MG IV (12:02)
[2019-08-14] MEDS: ONDANSETRON 8 MG in SODIUM CHLORIDE 0.9% 50 ML 216 ML IV (12:06)
[2019-08-14] MEDS: SODIUM CHLORIDE 0.9% IV (12:36)
[2019-08-14] MEDS: GEMCITABINE HCL IV (12:36)
[2019-08-28 09:31] LABS: Add Manual Diff / Slide Review NO; Basophils Absolute Auto 100 /uL (0-100); Basophils Percent Auto 0.8 % (0-2); Eosinophils Absolute Auto 200 /uL (0-450); Eosinophils Percent Auto 2.8 % (2-4); Hematocrit 38.3 % (41-53); Hemoglobin 12.8 g/dL (13.5-17.5); Lymphocytes Absolute Auto 1300 /uL (1100-4500); Lymphocytes Percent Auto 20.3 % (25-40); Mean Corpuscular HGB Conc 33.5 % (30-36); Mean Corpuscular Volume 92.7 fL (80-100); Monocytes Absolute Auto 900 /uL (0-900); Monocytes Percent Auto 13.2 % (3-14); Neutrophils Absolute Auto 4200 /uL (1500-7000); Neutrophils Percent Auto 62.9 % (50-75); Platelet Count 405 X10^3/uL (150-400); Red Blood Cell Count 4.13 X10^6/uL (4.5-5.9); Red Cell Distribution Width 18.2 % (11.6-14.8); White Blood Cell Count 6.7 X10^3/uL (4.5-11.0)
[2019-08-28 09:41] LABS: Alanine Aminotransferase 42 IU/L (<50); Albumin Globulin Ratio 1.3 (1.0-2.8); Alkaline Phosphatase 92 U/L (38-126); Aspartate Aminotransferase 25 IU/L (17-59); BUN Creatinine Ratio 24.3 (6-22); Bilirubin Total 0.4 mg/dL (0.2-1.3); Blood Urea Nitrogen 17 mg/dL (9-20); Calcium 8.7 mg/dL (8.4-10.2); Carbon Dioxide 25 mmol/L (22-32); Chloride 105 mmol/L (98-107); Estimated Glomerular Filt Rate > 60.0 mL/min (>60); Glucose 129 mg/dL (80-110); HEMOLYSIS < 15 (0-50); Potassium 4.2 mmol/L (3.4-5.1); Sodium 137 mmol/L (137-145)
[2019-08-28 09:58] VITALS: BP 113/69; PULSE 62; RESP 18; TEMP 36.6; O2SAT 96
--- NOTE | 2019-08-28 10:09 | P.PNONC_ITS ---
PN -Subjective Interval history: ID/CC: 68-year-old gentleman with metastatic adeno carcinoma of the lung. History of Present Illness: Kin Campbell is a 68 year old male with past significant smoking history (quitted about in 2009), and COPD. He just moved to [facility] from [facility]. He has been followed at [facility] for metastatic left upper lung adenocarcinoma. Kin initially presented with sudden onset left extremity weakness and headache in 05/2018. MR brain on 05/31/2018 showed a 2.1 cm mass in the right posterior parietal lobe with hemorrhage. CT CAP on 06/01/2018 showed a large left suprahilar/paramediastinal mass with extension to the mediastinum and moderate mediastinal adenopathy. There was a 2.5 cm right adrenal mass. He was flown to [facility] on 06/01/2018. He underwent EBUS/FNA on 06/03/2018 and pathology showed malignant epithelial cells consistent with poorly differentiated adenocarcinoma PD-L1 < 1%. EGFR, ALK, MET and RET were negative. He later proceeded to whole brain radiation therapy completed on 06/28/2018. He then was treated with carboplatin (AUC 4), pemetrexed (500mg/2), and pembrolizumab (200 mg) q21 days x 4 cycles followed by Pembrolizumab maintenance On 12/26/2018, CT CAP showed evidence of disease progression including increase in th esize of left upper lobe mass, mediastinal lymphadenopathy, and right adrenal gland nodule. Pembolizumab was then discontinued and patient was started on single agent Gemcitabine 1000 mg/m2 iv on days 1, 8, 15 on a 21-days cycles on 01/03/2019. Repeat CT on 03/18/2019 showed decrease in the ADRIA mass and the right adrenal lesion. His last chemotherapy was on 05/23/2019 before he moved to [place]. On 06/16/2019 MRI brain showed stable brain lesions CT CAP showed interval decrease in size of left upper lobe mass, mediastinal lymphadenopathy, and right adrenal gland. He presented today to establish care and to discuss continuation of the chemotherapy. Interim Events: Since his previous visit, patient completed 1 cycle of gemcitabine. Patient presents here today for cycle 3 day 1 treatment of gemcitabine. Patient is accompanied by his . Patient denies any cough fever or sore throat. Patient denies any headache at this moment. Patent continues to complain of right eye blurred vision. Patient also said that if he covered the right eye, the funds the objects seems to be smaller. He denies any new onset musculoskeletal pain. - Patient Self-Reported Symptoms SR Constitution: Fatigue/Malaise SR eye issues: Vision changes SR ears, nose, mouth, throat issues: Cough SR respiratory issues: Cough, Shortness of breath SR Cardiovascular issues: Shortness of breath with activity or lying flat SR Skin issues: Dry skin SR Endocrine issues: Cold intolerance - Additional ROS All systems PM: reviewed and no additional remarkable complaints except as stated Home Medications and Allergies Home Medications Medication Instructions Recorded Confirmed Type acetaminophen 1,000 mg PO Q6H PRN 06/30/19 08/28/19 History albuterol sulfate 2.5 mg INHALATION Q6H PRN 06/30/19 08/28/19 History albuterol sulfate [Ventolin HFA] 2 puff INHALATION 6XD PRN 06/30/19 08/28/19 History fluticasone propion-salmeterol 1 inh INHALATION BID 06/30/19 08/28/19 History [Advair Diskus] ibuprofen 200 mg PO Q6H PRN 06/30/19 08/28/19 History lidocaine-prilocaine 1 applic TOPICAL QWEEK 06/30/19 08/28/19 History Allergies Allergy/AdvReac Type Severity Reaction Status Date / Time No Known Drug Allergies Allergy Verified 06/30/19 13:19 Exam Vital signs: Vital Signs Temp Pulse Resp BP Pulse Ox 08/28/19 09:58 97.8 F 62 18 113/69 96 Intake and Output 08/27/19 08/28/19 08/28/19 23:59 07:59 15:59 Other: Weight 70.5 kg Patient Weight 08/28/19 23:59 Weight 70.5 kg Narrative: ECOG 1. Patient appears comfortable not in any acute respiratory distress. Patient is accompanied by his . Gen: WDWN, NAD, pleasant and cooperative, accompanied by his . HEENT: NCAT, EOMI, PERRLA, anicteric sclera. Neck: Supple, No palpable thyromegaly or lymphadenopathy. Respiratory: decreased BS, no wheezes audible. Cardiovascular: RRR, S1 and S2 normal, no M/G/R. Abdomen: Soft, NTND, BS normal, no palpable organomegaly Extremities: No LE pitting edema. Lymphatic: no palpable lymph nodes in the neck, axillae, or groins. Neurological: AOx3, CN II-XII grossly intact. No focal motor or sensory deficit. Psychiatric: Normal affect; normal thought process; no depression. Results - Labs Laboratory Last Values WBC 6.7 X10^3/uL (4.5-11.0) 08/28/19 09:25 RBC 4.13 X10^6/uL (4.5-5.9) L 08/28/19 09:25 Hgb 12.8 g/dL (13.5-17.5) L 08/28/19 09:25 Hct 38.3 % (41-53) L 08/28/19 09:25 MCV 92.7 fL (80-100) 08/28/19 09:25 MCH 31.0 PG (26-34) 08/28/19 09:25 MCHC 33.5 % (30-36) 08/28/19 09:25 RDW 18.2 % (11.6-14.8) H 08/28/19 09:25 Plt Count 405 X10^3/uL (150-400) H 08/28/19 09:25 Neut % (Auto) 62.9 % (50-75) 08/28/19 09:25 Lymph % (Auto) 20.3 % (25-40) L 08/28/19 09:25 [place] % (Auto) 13.2 % (3-14) 08/28/19 09:25 Eos % (Auto) 2.8 % (2-4) 08/28/19 09:25 Baso % (Auto) 0.8 % (0-2) 08/28/19 09:25 Neut # (Auto) 4200 /uL (9885-2032) 08/28/19 09:25 Lymph # (Auto) 1300 /uL (0609-1606) 08/28/19 09:25 [place] # (Auto) 900 /uL (0-900) 08/28/19 09:25 Eos # (Auto) 200 /uL (0-450) 08/28/19 09:25 Baso # (Auto) 100 /uL (0-100) 08/28/19 09:25 Total Counted 100 08/07/19 10:45 Seg Neutrophils % 23.0 % (38-70) L 08/07/19 10:45 Band Neutrophils % 3.0 % (3-7) 08/07/19 10:45 Lymphocytes % (Manual) 55.0 % (25-45) H 08/07/19 10:45 Atypical Lymphs % 3.0 % (-0) H 08/07/19 10:45 Monocytes % (Manual) 14.0 % (2-11) H 08/07/19 10:45 Eosinophils % (Manual) 1.0 % (2-4) L 08/07/19 10:45 Basophils % (Manual) 1.0 % (0-1) 08/07/19 10:45 Neutrophils # (Manual) 1040 /uL (8249-1067) L 08/07/19 10:45 Platelet Estimate Increased on smear 07/31/19 10:22 RBC Morphology Normal morphology 08/07/19 10:45 Sodium 137 mmol/L (137-145) 08/28/19 09:25 Potassium 4.2 mmol/L (3.4-5.1) 08/28/19 09:25 Chloride 105 mmol/L (98-107) 08/28/19 09:25 Carbon Dioxide 25 mmol/L (22-32) 08/28/19 09:25 BUN 17 mg/dL (9-20) 08/28/19 09:25 Creatinine 0.70 mg/dL (0.66-1.25) 08/28/19 09:25 Estimated GFR > 60.0 mL/min (>60) 08/28/19 09:25 BUN/Creatinine Ratio 24.3 (6-22) H 08/28/19 09:25 Glucose 129 mg/dL (80-110) H 08/28/19 09:25 Calcium 8.7 mg/dL (8.4-10.2) 08/28/19 09:25 Total Bilirubin 0.4 mg/dL (0.2-1.3) 08/28/19 09:25 AST 25 IU/L (17-59) 08/28/19 09:25 ALT 42 IU/L (<50) 08/28/19 09:25 Alkaline Phosphatase 92 U/L (38-126) 08/28/19 09:25 Total Protein 7.0 g/dL (6.3-8.2) 08/28/19 09:25 Albumin 4.0 g/dL (3.5-5.0) 08/28/19 09:25 Globulin 3.0 g/dL (1.7-4.1) 08/28/19 09:25 Albumin/Globulin Ratio 1.3 (1.0-2.8) 08/28/19 09:25 Assessment and Plan (1) Adenocarcinoma of left lung, stage 4 Overview: Stage IV left upper lung poorly differentiated adenocarcinoma, PD-L1 < 1%. EGFR, ALK, MET and RET were negative, diagnosed in 05/2018. He underwent whole brain radiation therapy on 06/28/2018, then received carboplatin (AUC 4), pemetrexed (500mg/2), and pembrolizumab (200 mg) q21 days x 4 cycles followed by Pem brolizumab maintenance. Due to disease progression, patient was started on single agent gemcitabine since 01/03/2019. Assessment: Clinically, patient has been doing well. I will continue current palliative gemcitabine. As far as the eye problems concerned, patient will continue follow-up with his outreach representative. Plan: 1. Ok to proceed to Gemcitabine today, and continue: 1000 mg/m2 on day 1, 8, 15 every 28 days 2. Follow up with outreach representative as scheduled. 3. CT CAP w/contrast and MR brain wo/w contrast 4. RTC on C4D1 of next cycle, labs per protocol.
[2019-08-28] MEDS: SODIUM CHLORIDE 0.9% 100 ML 21 ML IV (10:33)
[2019-08-28] MEDS: ONDANSETRON 8 MG in SODIUM CHLORIDE 0.9% 50 ML 216 ML IV (10:36)
[2019-08-28] MEDS: DEXAMETHASONE 10 MG/ML VIAL 8 MG IV (11:07)
[2019-08-28] MEDS: GEMCITABINE HCL IV (12:06)
[2019-08-28] MEDS: SODIUM CHLORIDE 0.9% IV (12:06)
[2019-09-04 10:41] VITALS: BP 130/70; PULSE 62; RESP 16; TEMP 36.8; O2SAT 94
[2019-09-04 10:51] LABS: Hemoglobin 12.4 g/dL (13.5-17.5); Mean Corpuscular HGB Conc 33.6 % (30-36); Mean Corpuscular Volume 92.4 fL (80-100); Platelet Count 348 X10^3/uL (150-400); Red Cell Distribution Width 17.4 % (11.6-14.8); White Blood Cell Count 3.4 X10^3/uL (4.5-11.0)
[2019-09-04 10:52] LABS: Add Manual Diff / Slide Review YES
[2019-09-04 11:04] LABS: Alanine Aminotransferase 60 IU/L (<50); Albumin 3.8 g/dL (3.5-5.0); Albumin Globulin Ratio 1.2 (1.0-2.8); Alkaline Phosphatase 83 U/L (38-126); Aspartate Aminotransferase 37 IU/L (17-59); BUN Creatinine Ratio 17.7 (6-22); Bilirubin Total 0.4 mg/dL (0.2-1.3); Blood Urea Nitrogen 11 mg/dL (9-20); Calcium 8.6 mg/dL (8.4-10.2); Carbon Dioxide 25 mmol/L (22-32); Chloride 105 mmol/L (98-107); Estimated Glomerular Filt Rate > 60.0 mL/min (>60); Globulin 3.1 g/dL (1.7-4.1); Glucose 98 mg/dL (80-110); HEMOLYSIS < 15 (0-50); Potassium 4.1 mmol/L (3.4-5.1); Sodium 138 mmol/L (137-145); Total Protein 6.9 g/dL (6.3-8.2)
[2019-09-04 11:12] LABS: Neutrophils Absolute Manual 1802 /uL (3000-5900); RBC Morphology Normal Morphology; Total Cells Counted 100
[2019-09-04] MEDS: SODIUM CHLORIDE 0.9% 100 ML 21 ML IV (11:53)
[2019-09-04] MEDS: DEXAMETHASONE 10 MG/ML VIAL 8 MG IV (11:53)
[2019-09-04] MEDS: ONDANSETRON 8 MG in SODIUM CHLORIDE 0.9% 50 ML 216 ML IV (11:57)
[2019-09-04] MEDS: SODIUM CHLORIDE 0.9% IV (12:37)
[2019-09-04] MEDS: GEMCITABINE HCL IV (12:37)
[2019-09-11 10:55] LABS: Add Manual Diff / Slide Review NO; Basophils Absolute Auto 0 /uL (0-100); Eosinophils Absolute Auto 0 /uL (0-450); Eosinophils Percent Auto 0.2 % (2-4); Hematocrit 37.1 % (41-53); Hemoglobin 12.3 g/dL (13.5-17.5); Lymphocytes Absolute Auto 1300 /uL (1100-4500); Lymphocytes Percent Auto 30.8 % (25-40); Mean Corpuscular HGB Conc 33.2 % (30-36); Mean Corpuscular Hemoglobin 31.1 PG (26-34); Mean Corpuscular Volume 93.5 fL (80-100); Monocytes Absolute Auto 300 /uL (0-900); Monocytes Percent Auto 6.1 % (3-14); Neutrophils Absolute Auto 2500 /uL (1500-7000); Neutrophils Percent Auto 61.9 % (50-75); Platelet Count 162 X10^3/uL (150-400); Red Blood Cell Count 3.96 X10^6/uL (4.5-5.9); Red Cell Distribution Width 17.7 % (11.6-14.8); White Blood Cell Count 4.1 X10^3/uL (4.5-11.0)
[2019-09-11 10:56] LABS: Alanine Aminotransferase 79 IU/L (<50); Albumin 3.8 g/dL (3.5-5.0); Albumin Globulin Ratio 1.3 (1.0-2.8); Alkaline Phosphatase 84 U/L (38-126); Aspartate Aminotransferase 41 IU/L (17-59); BUN Creatinine Ratio 23.1 (6-22); Bilirubin Total 0.3 mg/dL (0.2-1.3); Blood Urea Nitrogen 15 mg/dL (9-20); Calcium 8.8 mg/dL (8.4-10.2); Carbon Dioxide 26 mmol/L (22-32); Chloride 105 mmol/L (98-107); Estimated Glomerular Filt Rate > 60.0 mL/min (>60); Globulin 2.9 g/dL (1.7-4.1); Glucose 113 mg/dL (80-110); HEMOLYSIS < 15 (0-50); Potassium 3.8 mmol/L (3.4-5.1); Sodium 137 mmol/L (137-145); Total Protein 6.7 g/dL (6.3-8.2)
[2019-09-11 11:38] VITALS: BP 121/72; PULSE 63; RESP 16; TEMP 36.5; O2SAT 97
[2019-09-11] MEDS: DEXAMETHASONE 10 MG/ML VIAL 8 MG IV (11:43)
[2019-09-11] MEDS: SODIUM CHLORIDE 0.9% 100 ML 21 ML IV (11:44)
[2019-09-11] MEDS: ONDANSETRON 8 MG in SODIUM CHLORIDE 0.9% 50 ML 216 ML IV (11:45)
[2019-09-11] MEDS: SODIUM CHLORIDE 0.9% IV (13:02)
[2019-09-11] MEDS: GEMCITABINE HCL IV (13:02)
--- NOTE | 2019-09-25 09:39 | P.PNONC_ITS ---
PN -Subjective Interval history: ID/CC: 68-year-old gentleman with metastatic adenocarcinoma of the lung. History of Present Illness: Kin Campbell is a 68 year old male with past significant smoking history (quitted about in 2009), and COPD. He moved to [facility] from [facility]. He had been followed at [facility] for metastatic left upper lung adenocarcinoma. Kin initially presented with sudden onset left extremity weakness and headache in 05/2018. MR brain on 05/31/2018 showed a 2.1 cm mass in the right posterior parietal lobe with hemorrhage. CT CAP on 06/01/2018 showed a large left suprahilar/paramediastinal mass with extension to the mediastinum and moderate mediastinal adenopathy. There was a 2.5 cm right adrenal mass. He was flown to [facility] on 06/01/2018. He underwent EBUS/FNA on 06/03/2018 and pathology showed malignant epithelial cells consistent with poorly differentiated adenocarcinoma, PD-L1 < 1%. EGFR, ALK, MET and RET were negative. He later proceeded to whole brain radiation therapy completed on 06/28/2018. He then was treated with carboplatin (AUC 4), pemetrexed (500mg/2), and pembrolizumab (200 mg) q21 days x 4 cycles followed by Pembrolizumab maintenance On 12/26/2018, CT CAP showed evidence of disease progression including increase in the esize of left upper lobe mass, mediastinal lymphadenopathy, and right adrenal gland nodule. Pembolizumab was then discontinued and patient was started on single agent Gemcitabine 1000 mg/m2 iv on days 1, 8, 15 on a 21-days cycles on 01/03/2019. Repeat CT on 03/18/2019 showed decrease in the ADRIA mass and the right adrenal lesion. After chemotherapy was on 05/23/2019, he moved to [place]. On 06/16/2019 MRI brain showed stable brain lesions CT CAP showed interval decrease in size of left upper lobe mass, mediastinal lymphadenopathy, and right adrenal gland. Interim Events: Since he moved here, patient has completed 3 cycles of gemcitabine. Patient presents here today to review the most recent MRI and CT scan results and also to evaluate prior to proceeding to cycle 4 gemcitabine. Clinically patient reports exertional shortness of breath. He denies any fever or chills. Denies nausea or vomiting. Denies diarrhea or constipation. Denies any new musculoskeletal pain. On 09/18/2019, patient underwent MR brain that showed no evidence of disease recurrence or metastasis. On the same day patient also underwent CT chest abdomen and pelvis that showed the left supra hilar soft tissue mass measuring about 4.4 cm in maximal diameter, small bilateral hilar and mediastinal lymph nodes which do not meet size criteria for adenopathy, 10 mm indeterminate right adrenal nodule likely adenoma and no other evidence of metastatic disease below the diaphragm. - Patient Self-Reported Symptoms SR Constitution: Fatigue/Malaise SR eye issues: Vision changes SR ears, nose, mouth, throat issues: Cough SR respiratory issues: Cough, Shortness of breath SR Cardiovascular issues: Shortness of breath with activity or lying flat SR Skin issues: Dry skin SR Endocrine issues: Cold intolerance - Additional ROS All systems PM: reviewed and no additional remarkable complaints except as stated (those mentioned in HPI, Interval History and SR above.) Home Medications and Allergies Home Medications Medication Instructions Recorded Confirmed Type acetaminophen 1,000 mg PO Q6H PRN 06/30/19 08/28/19 History albuterol sulfate 2.5 mg INHALATION Q6H PRN 06/30/19 08/28/19 History albuterol sulfate [Ventolin HFA] 2 puff INHALATION 6XD PRN 06/30/19 08/28/19 History fluticasone propion-salmeterol 1 inh INHALATION BID 06/30/19 08/28/19 History [Advair Diskus] ibuprofen 200 mg PO Q6H PRN 06/30/19 08/28/19 History lidocaine-prilocaine 1 applic TOPICAL QWEEK 06/30/19 08/28/19 History Allergies Allergy/AdvReac Type Severity Reaction Status Date / Time No Known Drug Allergies Allergy Verified 06/30/19 13:19 Exam Vital signs: 09/25/19 10:27 Last Vital Signs Temp 98.2 F 09/25/19 09:51 Pulse 63 09/25/19 09:51 Resp 18 09/25/19 09:51 BP 115/64 09/25/19 09:51 Pulse Ox 97 09/25/19 09:51 Narrative: ECOG 1. Patient appears comfortable not in any acute respiratory distress. Patient is accompanied by his . Gen: WDWN, NAD, pleasant and cooperative, accompanied by his . HEENT: NCAT, EOMI, PERRLA, anicteric sclera. Neck: Supple, No palpable thyromegaly or lymphadenopathy. Respiratory: decreased BS, no wheezes audible. Cardiovascular: RRR, S1 and S2 normal, no M/G/R. Abdomen: Soft, NTND, BS normal, no palpable organomegaly Extremities: No LE pitting edema. Lymphatic: no palpable lymph nodes in the neck, axillae, or groins. Neurological: AOx3, CN II-XII grossly intact. No focal motor or sensory deficit. Psychiatric: Normal affect; normal thought process; no depression. Results - Labs Laboratory Last Values WBC 4.5 X10^3/uL (4.5-11.0) 09/25/19 09:30 RBC 3.90 X10^6/uL (4.5-5.9) L 09/25/19 09:30 Hgb 12.2 g/dL (13.5-17.5) L 09/25/19 09:30 Hct 37.2 % (41-53) L 09/25/19 09:30 MCV 95.5 fL (80-100) 09/25/19 09:30 MCH 31.3 PG (26-34) 09/25/19 09:30 MCHC 32.8 % (30-36) 09/25/19 09:30 RDW 18.9 % (11.6-14.8) H 09/25/19 09:30 Plt Count 431 X10^3/uL (150-400) H 09/25/19 09:30 Neut % (Auto) 56.9 % (50-75) 09/25/19 09:30 Lymph % (Auto) 25.6 % (25-40) 09/25/19 09:30 [place] % (Auto) 15.2 % (3-14) H 09/25/19 09:30 Eos % (Auto) 1.7 % (2-4) L 09/25/19 09:30 Baso % (Auto) 0.6 % (0-2) 09/25/19 09:30 Neut # (Auto) 2600 /uL (4640-5762) 09/25/19 09:30 Lymph # (Auto) 1200 /uL (6767-6570) 09/25/19 09:30 [place] # (Auto) 700 /uL (0-900) 09/25/19 09:30 Eos # (Auto) 100 /uL (0-450) 09/25/19 09:30 Baso # (Auto) 0 /uL (0-100) 09/25/19 09:30 Total Counted 100 09/04/19 10:35 Seg Neutrophils % 49.0 % (38-70) 09/04/19 10:35 Band Neutrophils % 4.0 % (3-7) 09/04/19 10:35 Lymphocytes % (Manual) 36.0 % (25-45) 09/04/19 10:35 Atypical Lymphs % 2.0 % (-0) H 09/04/19 10:35 Monocytes % (Manual) 6.0 % (2-11) 09/04/19 10:35 Eosinophils % (Manual) 1.0 % (2-4) L 09/04/19 10:35 Basophils % (Manual) 2.0 % (0-1) H 09/04/19 10:35 Neutrophils # (Manual) 1802 /uL (1921-3605) L 09/04/19 10:35 Platelet Estimate Increased on smear 07/31/19 10:22 RBC Morphology Normal morphology 09/04/19 10:35 Sodium 137 mmol/L (137-145) 09/25/19 09:30 Potassium 3.9 mmol/L (3.4-5.1) 09/25/19 09:30 Chloride 105 mmol/L (98-107) 09/25/19 09:30 Carbon Dioxide 27 mmol/L (22-32) 09/25/19 09:30 BUN 18 mg/dL (9-20) 09/25/19 09:30 Creatinine 0.72 mg/dL (0.66-1.25) 09/25/19 09:30 Estimated GFR > 60.0 mL/min (>60) 09/25/19 09:30 BUN/Creatinine Ratio 25.0 (6-22) H 09/25/19 09:30 Glucose 106 mg/dL (80-110) 09/25/19 09:30 Calcium 8.8 mg/dL (8.4-10.2) 09/25/19 09:30 Total Bilirubin 0.5 mg/dL (0.2-1.3) 09/25/19 09:30 AST 31 IU/L (17-59) 09/25/19 09:30 ALT 34 IU/L (<50) 09/25/19 09:30 Alkaline Phosphatase 84 U/L (38-126) 09/25/19 09:30 Total Protein 6.6 g/dL (6.3-8.2) 09/25/19 09:30 Albumin 3.8 g/dL (3.5-5.0) 09/25/19 09:30 Globulin 2.8 g/dL (1.7-4.1) 09/25/19 09:30 Albumin/Globulin Ratio 1.4 (1.0-2.8) 09/25/19 09:30 Assessment and Plan (1) Adenocarcinoma of left lung, stage 4 Overview: Stage IV left upper lung poorly differentiated adenocarcinoma, PD-L1 < 1%. EGFR, ALK, MET and RET were negative, diagnosed in 05/2018. He underwent whole brain radiation therapy on 06/28/2018, then received carboplatin (AUC 4), pemetrexed (500mg/2), and pembrolizumab (200 mg) q21 days x 4 cycles followed by Pembrolizumab maintenance. Due to disease progression, patient was started on single agent gemcitabine since 01/03/2019. Assessment: Today I reviewed MRI brain and CT chest abdomen pelvis results with the patient. The imaging studies suggest no disease progression or new metastasis. I talked with him that it seems to me that the gemcitabine has been effective in controlling his lung cancer. I talked with him and his that we will continue the treatment. I reviewed the labs with the patient including CBC and CMP the are or appropriate for chemo. Plan: 1. Ok to proceed to Gemcitabine today, and continue: 1000 mg/m2 on day 1, 8, 15 every 28 days 2. Follow up with block feeder as scheduled. 3. RTC on C5D1 of next cycle, labs per protocol. (2) Port-A-Cath in place Flush every 4-6 weeks
[2019-09-25 09:49] LABS: Add Manual Diff / Slide Review NO; Basophils Absolute Auto 0 /uL (0-100); Basophils Percent Auto 0.6 % (0-2); Eosinophils Absolute Auto 100 /uL (0-450); Eosinophils Percent Auto 1.7 % (2-4); Hematocrit 37.2 % (41-53); Hemoglobin 12.2 g/dL (13.5-17.5); Lymphocytes Absolute Auto 1200 /uL (1100-4500); Lymphocytes Percent Auto 25.6 % (25-40); Mean Corpuscular HGB Conc 32.8 % (30-36); Mean Corpuscular Hemoglobin 31.3 PG (26-34); Mean Corpuscular Volume 95.5 fL (80-100); Monocytes Absolute Auto 700 /uL (0-900); Monocytes Percent Auto 15.2 % (3-14); Neutrophils Absolute Auto 2600 /uL (1500-7000); Neutrophils Percent Auto 56.9 % (50-75); Platelet Count 431 X10^3/uL (150-400); Red Cell Distribution Width 18.9 % (11.6-14.8); White Blood Cell Count 4.5 X10^3/uL (4.5-11.0)
[2019-09-25 09:51] VITALS: BP 115/64; PULSE 63; RESP 18; TEMP 36.8; O2SAT 97
[2019-09-25 10:00] LABS: Alanine Aminotransferase 34 IU/L (<50); Albumin 3.8 g/dL (3.5-5.0); Albumin Globulin Ratio 1.4 (1.0-2.8); Alkaline Phosphatase 84 U/L (38-126); Aspartate Aminotransferase 31 IU/L (17-59); Bilirubin Total 0.5 mg/dL (0.2-1.3); Blood Urea Nitrogen 18 mg/dL (9-20); Calcium 8.8 mg/dL (8.4-10.2); Carbon Dioxide 27 mmol/L (22-32); Chloride 105 mmol/L (98-107); Estimated Glomerular Filt Rate > 60.0 mL/min (>60); Globulin 2.8 g/dL (1.7-4.1); Glucose 106 mg/dL (80-110); HEMOLYSIS < 15 (0-50); Potassium 3.9 mmol/L (3.4-5.1); Sodium 137 mmol/L (137-145); Total Protein 6.6 g/dL (6.3-8.2)
[2019-09-25] MEDS: DEXAMETHASONE 10 MG/ML VIAL 8 MG IV (10:36)
[2019-09-25] MEDS: SODIUM CHLORIDE 0.9% 100 ML 30 ML IV (10:36)
[2019-09-25] MEDS: ONDANSETRON 8 MG in SODIUM CHLORIDE 0.9% 50 ML 216 ML IV (10:46)
[2019-09-25] MEDS: GEMCITABINE HCL IV (11:20)
[2019-09-25] MEDS: SODIUM CHLORIDE 0.9% IV (11:20)
[2019-10-02 10:59] VITALS: BP 114/65; PULSE 61; RESP 16; TEMP 36.7; O2SAT 95
[2019-10-02 11:03] LABS: Add Manual Diff / Slide Review NO; Basophils Absolute Auto 100 /uL (0-100); Eosinophils Absolute Auto 0 /uL (0-450); Eosinophils Percent Auto 0.6 % (2-4); Hematocrit 35.3 % (41-53); Hemoglobin 12.1 g/dL (13.5-17.5); Lymphocytes Absolute Auto 1200 /uL (1100-4500); Lymphocytes Percent Auto 43.5 % (25-40); Mean Corpuscular HGB Conc 34.3 % (30-36); Mean Corpuscular Hemoglobin 32.4 PG (26-34); Mean Corpuscular Volume 94.3 fL (80-100); Monocytes Absolute Auto 200 /uL (0-900); Monocytes Percent Auto 8.6 % (3-14); Neutrophils Absolute Auto 1200 /uL (1500-7000); Neutrophils Percent Auto 44.3 % (50-75); Platelet Count 339 X10^3/uL (150-400); Red Blood Cell Count 3.75 X10^6/uL (4.5-5.9); Red Cell Distribution Width 18.1 % (11.6-14.8); White Blood Cell Count 2.7 X10^3/uL (4.5-11.0)
[2019-10-02 11:20] LABS: Alanine Aminotransferase 64 IU/L (<50); Albumin 3.7 g/dL (3.5-5.0); Albumin Globulin Ratio 1.3 (1.0-2.8); Alkaline Phosphatase 80 U/L (38-126); Aspartate Aminotransferase 42 IU/L (17-59); BUN Creatinine Ratio 18.8 (6-22); Bilirubin Total 0.4 mg/dL (0.2-1.3); Blood Urea Nitrogen 12 mg/dL (9-20); Calcium 8.7 mg/dL (8.4-10.2); Carbon Dioxide 27 mmol/L (22-32); Chloride 104 mmol/L (98-107); Estimated Glomerular Filt Rate > 60.0 mL/min (>60); Globulin 2.9 g/dL (1.7-4.1); Glucose 107 mg/dL (80-110); HEMOLYSIS < 15 (0-50); Potassium 4.2 mmol/L (3.4-5.1); Sodium 136 mmol/L (137-145); Total Protein 6.6 g/dL (6.3-8.2)
[2019-10-02] MEDS: DEXAMETHASONE 10 MG/ML VIAL 8 MG IV (12:07)
[2019-10-02] MEDS: SODIUM CHLORIDE 0.9% 100 ML 21 ML IV (12:07)
[2019-10-02] MEDS: ONDANSETRON 8 MG in SODIUM CHLORIDE 0.9% 50 ML 216 ML IV (12:30)
[2019-10-02] MEDS: GEMCITABINE HCL IV (13:01)
[2019-10-02] MEDS: SODIUM CHLORIDE 0.9% IV (13:01)
[2019-10-09 10:33] LABS: Add Manual Diff / Slide Review NO; Basophils Absolute Auto 0 /uL (0-100); Basophils Percent Auto 0.9 % (0-2); Eosinophils Absolute Auto 0 /uL (0-450); Eosinophils Percent Auto 0.1 % (2-4); Hematocrit 37.1 % (41-53); Hemoglobin 12.5 g/dL (13.5-17.5); Lymphocytes Absolute Auto 1400 /uL (1100-4500); Lymphocytes Percent Auto 39.3 % (25-40); Mean Corpuscular HGB Conc 33.7 % (30-36); Mean Corpuscular Volume 95.2 fL (80-100); Monocytes Absolute Auto 200 /uL (0-900); Monocytes Percent Auto 5.7 % (3-14); Neutrophils Absolute Auto 1900 /uL (1500-7000); Platelet Count 151 X10^3/uL (150-400); Red Cell Distribution Width 18.4 % (11.6-14.8); White Blood Cell Count 3.5 X10^3/uL (4.5-11.0)
[2019-10-09 10:45] LABS: Alanine Aminotransferase 59 IU/L (<50); Albumin 3.9 g/dL (3.5-5.0); Albumin Globulin Ratio 1.3 (1.0-2.8); Alkaline Phosphatase 86 U/L (38-126); Aspartate Aminotransferase 37 IU/L (17-59); BUN Creatinine Ratio 21.2 (6-22); Bilirubin Total 0.4 mg/dL (0.2-1.3); Blood Urea Nitrogen 14 mg/dL (9-20); Calcium 8.5 mg/dL (8.4-10.2); Carbon Dioxide 26 mmol/L (22-32); Chloride 104 mmol/L (98-107); Estimated Glomerular Filt Rate > 60.0 mL/min (>60); Globulin 2.9 g/dL (1.7-4.1); Glucose 124 mg/dL (80-110); HEMOLYSIS < 15 (0-50); Potassium 3.9 mmol/L (3.4-5.1); Sodium 136 mmol/L (137-145); Total Protein 6.8 g/dL (6.3-8.2)
[2019-10-09 10:55] VITALS: BP 117/73; PULSE 59; RESP 16; TEMP 36.5; O2SAT 99
[2019-10-09] MEDS: SODIUM CHLORIDE 0.9% 100 ML 21 ML IV (11:09)
[2019-10-09] MEDS: DEXAMETHASONE 10 MG/ML VIAL 8 MG IV (11:10)
[2019-10-09] MEDS: ONDANSETRON 8 MG in SODIUM CHLORIDE 0.9% 50 ML 216 ML IV (11:37)
[2019-10-09] MEDS: SODIUM CHLORIDE 0.9% IV (12:05)
[2019-10-09] MEDS: GEMCITABINE HCL IV (12:05)
[2019-10-23 09:34] LABS: Add Manual Diff / Slide Review NO; Basophils Absolute Auto 0 /uL (0-100); Basophils Percent Auto 0.8 % (0-2); Eosinophils Absolute Auto 0 /uL (0-450); Eosinophils Percent Auto 0.6 % (2-4); Hemoglobin 11.8 g/dL (13.5-17.5); Lymphocytes Absolute Auto 1000 /uL (1100-4500); Lymphocytes Percent Auto 17.5 % (25-40); Mean Corpuscular HGB Conc 33.8 % (30-36); Mean Corpuscular Hemoglobin 31.6 PG (26-34); Mean Corpuscular Volume 93.5 fL (80-100); Monocytes Absolute Auto 1300 /uL (0-900); Monocytes Percent Auto 22.2 % (3-14); Neutrophils Absolute Auto 3400 /uL (1500-7000); Neutrophils Percent Auto 58.9 % (50-75); Platelet Count 460 X10^3/uL (150-400); Red Blood Cell Count 3.74 X10^6/uL (4.5-5.9); Red Cell Distribution Width 17.9 % (11.6-14.8); White Blood Cell Count 5.8 X10^3/uL (4.5-11.0)
--- NOTE | 2019-10-23 09:36 | P.PNONC_ITS ---
PN -Subjective Interval history: ID/CC: 68-year-old gentleman with metastatic adenocarcinoma of the lung. History of Present Illness: Kin Campbell is a 68 year old male with past significant smoking history (quitted about in 2009), and COPD. He moved to [facility] from [facility]. He had been followed at [facility] for metastatic left upper lung adenocarcinoma. Kin initially presented with sudden onset left extremity weakness and headache in 05/2018. MR brain on 05/31/2018 showed a 2.1 cm mass in the right posterior parietal lobe with hemorrhage. CT CAP on 06/01/2018 showed a large left suprahilar/paramediastinal mass with extension to the mediastinum and moderate mediastinal adenopathy. There was a 2.5 cm right adrenal mass. He was flown to [facility] on 06/01/2018. He underwent EBUS/FNA on 06/03/2018 and pathology showed malignant epithelial cells consistent with poorly differentiated adenocarcinoma, PD-L1 < 1%. EGFR, ALK, MET and RET were negative. He later proceeded to whole brain radiation therapy completed on 06/28/2018. He then was treated with carboplatin (AUC 4), pemetrexed (500mg/2), and pembrolizumab (200 mg) q21 days x 4 cycles followed by Pembrolizumab maintenance On 12/26/2018, CT CAP showed evidence of disease progression including increase in the size of left upper lobe mass, mediastinal lymphadenopathy, and right adrenal gland nodule. Pembolizumab was then discontinued and patient was started on single agent Gemcitabine 1000 mg/m2 iv on days 1, 8, 15 on a 21-days cycles on 01/03/2019. Repeat CT on 03/18/2019 showed decrease in the ADRIA mass and the right adrenal lesion. After chemotherapy was on 05/23/2019, he moved to [place]. On 06/16/2019 MRI brain showed stable brain lesions CT CAP showed interval decrease in size of left upper lobe mass, mediastinal lymphadenopathy, and right adrenal gland. On 09/18/2019, patient underwent MR brain that showed no evidence of disease recu rrence or metastasis. On the same day patient also underwent CT chest abdomen and pelvis that showed the left supra hilar soft tissue mass measuring about 4.4 cm in maximal diameter, small bilateral hilar and mediastinal lymph nodes which do not meet size criteria for adenopathy, 10 mm indeterminate right adrenal nodule likely adenoma and no other evidence of metastatic disease below the diaphragm. Interim Events: Patient presents here today for fifth cycle of gemcitabine, patient is accompanied by his . Patient's has noticed that patient recently is more confused and more tired with shortness of breath. The patient himself denies any headache. Patient's appetite is okay, but the weight has been decreasing. Patient denies any pain in the chest. Patient has always had some cough and it has not changed. - Patient Self-Reported Symptoms SR Constitution: Fatigue/Malaise SR eye issues: Vision changes SR ears, nose, mouth, throat issues: Hoarseness SR respiratory issues: Cough SR Cardiovascular issues: Shortness of breath with activity or lying flat SR Skin issues: Dry skin SR Endocrine issues: Cold intolerance - Additional ROS All systems PM: reviewed and no additional remarkable complaints except as stated Home Medications and Allergies Home Medications Medication Instructions Recorded Confirmed Type acetaminophen 1,000 mg PO Q6H PRN 06/30/19 08/28/19 History albuterol sulfate 2.5 mg INHALATION Q6H PRN 06/30/19 08/28/19 History albuterol sulfate [Ventolin HFA] 2 puff INHALATION 6XD PRN 06/30/19 08/28/19 History fluticasone propion-salmeterol 1 inh INHALATION BID 06/30/19 08/28/19 History [Advair Diskus] ibuprofen 200 mg PO Q6H PRN 06/30/19 08/28/19 History lidocaine-prilocaine 1 applic TOPICAL QWEEK 06/30/19 08/28/19 History Allergies Allergy/AdvReac Type Severity Reaction Status Date / Time No Known Drug Allergies Allergy Verified 06/30/19 13:19 Exam Vital signs: 10/23/19 10:06 Last Vital Signs Temp 98.8 F 10/23/19 09:48 Pulse 87 10/23/19 09:48 Resp 16 10/23/19 09:48 BP 107/65 10/23/19 09:48 Pulse Ox 94 10/23/19 09:48 Narrative: ECOG 1. Gen: WDWN, NAD, pleasant and cooperative, accompanied by his . HEENT: NCAT, EOMI, PERRLA, anicteric sclera. Neck: Supple, No palpable thyromegaly or lymphadenopathy. Respiratory: decreased BS, no wheezes audible. Cardiovascular: RRR, S1 and S2 normal, no M/G/R. Abdomen: Soft, NTND, BS normal, no palpable organomegaly Extremities: No LE pitting edema. Lymphatic: no palpable lymph nodes in the neck, or axillae Neurological: AOx3, CN II-XII grossly intact. No focal motor or sensory deficit. Psychiatric: Normal affect; normal thought process; no depression. Results - Labs Laboratory Last Values WBC 5.8 X10^3/uL (4.5-11.0) 10/23/19 09:25 RBC 3.74 X10^6/uL (4.5-5.9) L 10/23/19 09:25 Hgb 11.8 g/dL (13.5-17.5) L 10/23/19 09:25 Hct 35.0 % (41-53) L 10/23/19 09:25 MCV 93.5 fL (80-100) 10/23/19 09:25 MCH 31.6 PG (26-34) 10/23/19 09:25 MCHC 33.8 % (30-36) 10/23/19 09:25 RDW 17.9 % (11.6-14.8) H 10/23/19 09:25 Plt Count 460 X10^3/uL (150-400) H 10/23/19 09:25 Neut % (Auto) 58.9 % (50-75) 10/23/19 09:25 Lymph % (Auto) 17.5 % (25-40) L 10/23/19 09:25 [place] % (Auto) 22.2 % (3-14) H 10/23/19 09:25 Eos % (Auto) 0.6 % (2-4) L 10/23/19 09:25 Baso % (Auto) 0.8 % (0-2) 10/23/19 09:25 Neut # (Auto) 3400 /uL (7875-4855) 10/23/19 09:25 Lymph # (Auto) 1000 /uL (0855-8702) L 10/23/19 09:25 [place] # (Auto) 1300 /uL (0-900) H 10/23/19 09:25 Eos # (Auto) 0 /uL (0-450) 10/23/19 09:25 Baso # (Auto) 0 /uL (0-100) 10/23/19 09:25 Total Counted 100 09/04/19 10:35 Seg Neutrophils % 49.0 % (38-70) 09/04/19 10:35 Band Neutrophils % 4.0 % (3-7) 09/04/19 10:35 Lymphocytes % (Manual) 36.0 % (25-45) 09/04/19 10:35 Atypical Lymphs % 2.0 % (-0) H 09/04/19 10:35 Monocytes % (Manual) 6.0 % (2-11) 09/04/19 10:35 Eosinophils % (Manual) 1.0 % (2-4) L 09/04/19 10:35 Basophils % (Manual) 2.0 % (0-1) H 09/04/19 10:35 Neutrophils # (Manual) 1802 /uL (2487-0031) L 09/04/19 10:35 Platelet Estimate Increased on smear 07/31/19 10:22 RBC Morphology Normal morphology 09/04/19 10:35 Sodium 136 mmol/L (137-145) L 10/23/19 09:25 Potassium 3.7 mmol/L (3.4-5.1) 10/23/19 09:25 Chloride 102 mmol/L (98-107) 10/23/19 09:25 Carbon Dioxide 28 mmol/L (22-32) 10/23/19 09:25 BUN 14 mg/dL (9-20) 10/23/19 09:25 Creatinine 0.68 mg/dL (0.66-1.25) 10/23/19 09:25 Estimated GFR > 60.0 mL/min (>60) 10/23/19 09:25 BUN/Creatinine Ratio 20.6 (6-22) 10/23/19 09:25 Glucose 155 mg/dL (80-110) H 10/23/19 09:25 Calcium 8.8 mg/dL (8.4-10.2) 10/23/19 09:25 Total Bilirubin 0.6 mg/dL (0.2-1.3) 10/23/19 09:25 AST 29 IU/L (17-59) 10/23/19 09:25 ALT 28 IU/L (<50) 10/23/19 09:25 Alkaline Phosphatase 133 U/L (38-126) H 10/23/19 09:25 Total Protein 6.9 g/dL (6.3-8.2) 10/23/19 09:25 Albumin 3.8 g/dL (3.5-5.0) 10/23/19 09:25 Globulin 3.1 g/dL (1.7-4.1) 10/23/19 09:25 Albumin/Globulin Ratio 1.2 (1.0-2.8) 10/23/19 09:25 Assessment and Plan (1) Adenocarcinoma of left lung, stage 4 Overview: Stage IV left upper lung poorly differentiated adenocarcinoma, PD-L1 < 1%. EGFR, ALK, MET and RET were negative, diagnosed in 05/2018. He underwent whole brain radiation therapy on 06/28/2018, then received carboplatin (AUC 4), pemetrexed (500mg/2), and pembrolizumab (200 mg) q21 days x 4 cycles followed by Pembrolizumab maintenance. Due to disease progression, patient was started on single agent gemcitabine since 01/03/2019. Assessment: Today patient's asked a lot of questions. She was wondering why the patient becomes more confused and more tired with respiratory shortness of breath. In addition, she was wondering about the CT report and measurement of the left hilar mass which seems to be progressing compared to previous CT scan in June 2019. I explained that patient had whole-brain radiation therapy in June of 2018. The recent confusion or memory changes probably is related to the whole brain radiation therapy. As far as the left hilar mass is concerned, I showed the patient and patient's the images from September side by side with that of June. To my eyes, left hilar mass has remained stable and no significant changes. Patient's voiced agreement and understanding. As far as the shortness of breath and fatigue is concerned, I think probably is related to the cumulative side effects of gemcitabine. Overall I do not think there is any evidence of disease progression. I would recommend that we continue gemcitabine for now. Plan: 1. Ok to proceed to Gemcitabine today, and continue: 1000 mg/m2 on day 1, 8, 15 every 28 days 2. Follow up with certified technician specialist as scheduled. 3. RTC on C6D1 of next cycle, labs per protocol. (2) Port-A-Cath in place Flush every 4-6 weeks
[2019-10-23 09:45] LABS: Alanine Aminotransferase 28 IU/L (<50); Albumin 3.8 g/dL (3.5-5.0); Albumin Globulin Ratio 1.2 (1.0-2.8); Alkaline Phosphatase 133 U/L (38-126); Aspartate Aminotransferase 29 IU/L (17-59); BUN Creatinine Ratio 20.6 (6-22); Bilirubin Total 0.6 mg/dL (0.2-1.3); Blood Urea Nitrogen 14 mg/dL (9-20); Calcium 8.8 mg/dL (8.4-10.2); Carbon Dioxide 28 mmol/L (22-32); Chloride 102 mmol/L (98-107); Estimated Glomerular Filt Rate > 60.0 mL/min (>60); Globulin 3.1 g/dL (1.7-4.1); Glucose 155 mg/dL (80-110); HEMOLYSIS < 15 (0-50); Potassium 3.7 mmol/L (3.4-5.1); Sodium 136 mmol/L (137-145); Total Protein 6.9 g/dL (6.3-8.2)
[2019-10-23 09:48] VITALS: BP 107/65; PULSE 87; RESP 16; TEMP 37.1; O2SAT 94
[2019-10-23] MEDS: DEXAMETHASONE 10 MG/ML VIAL 8 MG IV (10:58)
[2019-10-23] MEDS: SODIUM CHLORIDE 0.9% 100 ML 21 ML IV (10:59)
[2019-10-23] MEDS: ONDANSETRON 8 MG in SODIUM CHLORIDE 0.9% 50 ML 216 ML IV (11:14)
[2019-10-23] MEDS: SODIUM CHLORIDE 0.9% IV (11:53)
[2019-10-23] MEDS: GEMCITABINE HCL IV (11:53)
[2019-10-30 11:18] LABS: Add Manual Diff / Slide Review NO; Basophils Absolute Auto 100 /uL (0-100); Eosinophils Absolute Auto 0 /uL (0-450); Hematocrit 36.1 % (41-53); Hemoglobin 12.3 g/dL (13.5-17.5); Lymphocytes Absolute Auto 700 /uL (1100-4500); Lymphocytes Percent Auto 12.9 % (25-40); Mean Corpuscular Hemoglobin 31.6 PG (26-34); Mean Corpuscular Volume 92.8 fL (80-100); Monocytes Absolute Auto 500 /uL (0-900); Monocytes Percent Auto 9.6 % (3-14); Neutrophils Absolute Auto 4300 /uL (1500-7000); Neutrophils Percent Auto 76.5 % (50-75); Platelet Count 337 X10^3/uL (150-400); Red Blood Cell Count 3.88 X10^6/uL (4.5-5.9); White Blood Cell Count 5.7 X10^3/uL (4.5-11.0)
[2019-10-30 11:19] VITALS: BP 125/76; PULSE 65; RESP 16; TEMP 36.7; O2SAT 96
[2019-10-30 11:27] LABS: Alanine Aminotransferase 163 IU/L (<50); Albumin 3.9 g/dL (3.5-5.0); Albumin Globulin Ratio 1.2 (1.0-2.8); Alkaline Phosphatase 128 U/L (38-126); Aspartate Aminotransferase 94 IU/L (17-59); BUN Creatinine Ratio 24.6 (6-22); Bilirubin Total 0.5 mg/dL (0.2-1.3); Blood Urea Nitrogen 17 mg/dL (9-20); Carbon Dioxide 27 mmol/L (22-32); Chloride 103 mmol/L (98-107); Estimated Glomerular Filt Rate > 60.0 mL/min (>60); Globulin 3.2 g/dL (1.7-4.1); Glucose 113 mg/dL (80-110); HEMOLYSIS < 15 (0-50); Sodium 138 mmol/L (137-145); Total Protein 7.1 g/dL (6.3-8.2)
--- NOTE | 2019-10-30 11:47 | PC.NURSE ---
SHORTNESS OF BREATH Pt reports that he went to the respiratory clinic on Sunday (10/25) due to increased shortness of breath. I couldn't even go up the stairs. CXR negative for PNA, COVID-19 test negative. Pt stated that the SOB was related to COPD, prescribed prednisone 20mg for 5 days. Last dose was taken this AM. Pt reports that steroid has improved symptoms. Today stating 96% RA, breathing is non-labored, lung sounds diminished throughout, respirations are 16 per minute. Will continue to monitor.
--- NOTE | 2019-10-30 13:25 | PC.NURSE ---
Chemo held today per Dr. Saleem r/t lab results AST and ALT. Pt scheduled for next week RN visit,labs and poss treatment.
[2019-11-06 11:06] LABS: Add Manual Diff / Slide Review NO; Basophils Absolute Auto 100 /uL (0-100); Basophils Percent Auto 1.1 % (0-2); Eosinophils Absolute Auto 100 /uL (0-450); Eosinophils Percent Auto 1.3 % (2-4); Lymphocytes Absolute Auto 900 /uL (1100-4500); Lymphocytes Percent Auto 12.5 % (25-40); Mean Corpuscular HGB Conc 33.4 % (30-36); Mean Corpuscular Hemoglobin 30.5 PG (26-34); Mean Corpuscular Volume 91.4 fL (80-100); Monocytes Absolute Auto 1100 /uL (0-900); Monocytes Percent Auto 16.4 % (3-14); Neutrophils Absolute Auto 4800 /uL (1500-7000); Neutrophils Percent Auto 68.7 % (50-75); Platelet Count 326 X10^3/uL (150-400); Red Blood Cell Count 3.94 X10^6/uL (4.5-5.9); Red Cell Distribution Width 19.5 % (11.6-14.8)
[2019-11-06 11:19] LABS: Alanine Aminotransferase 57 IU/L (<50); Albumin 3.7 g/dL (3.5-5.0); Albumin Globulin Ratio 1.1 (1.0-2.8); Alkaline Phosphatase 173 U/L (38-126); Aspartate Aminotransferase 36 IU/L (17-59); BUN Creatinine Ratio 24.6 (6-22); Bilirubin Total 0.6 mg/dL (0.2-1.3); Blood Urea Nitrogen 15 mg/dL (9-20); Calcium 8.6 mg/dL (8.4-10.2); Carbon Dioxide 27 mmol/L (22-32); Chloride 104 mmol/L (98-107); Estimated Glomerular Filt Rate > 60.0 mL/min (>60); Globulin 3.3 g/dL (1.7-4.1); Glucose 129 mg/dL (80-110); HEMOLYSIS < 15 (0-50); Potassium 3.7 mmol/L (3.4-5.1); Sodium 137 mmol/L (137-145)
[2019-11-06 11:25] VITALS: BP 118/76; PULSE 81; RESP 24; TEMP 36.8; O2SAT 94
--- NOTE | 2019-11-06 12:17 | PC.NURSE ---
PT TX held r/t elevated ALK PHOS per Dr. Saleem, treatment postponed till next week pending lab values.
[2019-11-13 11:21] LABS: Hemoglobin 12.8 g/dL (13.5-17.5)
[2019-11-13 11:24] LABS: Hematocrit 37.7 % (41-53); Mean Corpuscular HGB Conc 33.9 % (30-36); Mean Corpuscular Hemoglobin 30.2 PG (26-34); Mean Corpuscular Volume 89.1 fL (80-100); Platelet Count 408 X10^3/uL (150-400); Red Blood Cell Count 4.23 X10^6/uL (4.5-5.9); Red Cell Distribution Width 19.3 % (11.6-14.8); White Blood Cell Count 5.6 X10^3/uL (4.5-11.0)
[2019-11-13 11:27] LABS: Add Manual Diff / Slide Review YES
[2019-11-13 11:32] LABS: Alanine Aminotransferase 57 IU/L (<50); Albumin 3.9 g/dL (3.5-5.0); Albumin Globulin Ratio 1.1 (1.0-2.8); Alkaline Phosphatase 173 U/L (38-126); Aspartate Aminotransferase 46 IU/L (17-59); BUN Creatinine Ratio 21.9 (6-22); Bilirubin Total 0.5 mg/dL (0.2-1.3); Blood Urea Nitrogen 16 mg/dL (9-20); Carbon Dioxide 26 mmol/L (22-32); Chloride 104 mmol/L (98-107); Estimated Glomerular Filt Rate > 60.0 mL/min (>60); Globulin 3.6 g/dL (1.7-4.1); Glucose 115 mg/dL (80-110); HEMOLYSIS < 15 (0-50); Sodium 137 mmol/L (137-145); Total Protein 7.5 g/dL (6.3-8.2)
[2019-11-13 11:48] LABS: Neutrophils Absolute Manual 3808 /uL (3000-5900); Total Cells Counted 100
[2019-11-13 11:49] LABS: Anisocytosis 1+
[2019-11-13 12:11] VITALS: BP 106/48; PULSE 64; RESP 16; TEMP 36.6; O2SAT 94
[2019-11-13] MEDS: ONDANSETRON 8 MG in SODIUM CHLORIDE 0.9% 50 ML 216 ML IV (12:22)
[2019-11-13] MEDS: DEXAMETHASONE 10 MG/ML VIAL 8 MG IV (12:22)
[2019-11-13] MEDS: SODIUM CHLORIDE 0.9% 100 ML 21 ML IV (12:23)
--- NOTE | 2019-11-13 13:18 | PC.NURSE ---
Unable to get blood return via patient PAC despite multiple attempts by RNs in infusion. TPA ordered for patient.
[2019-11-13] MEDS: ALTEPLASE 2 MG/2 ML VIAL IV (13:30)
[2019-11-13] MEDS: GEMCITABINE HCL IV (14:44)
[2019-11-13] MEDS: SODIUM CHLORIDE 0.9% IV (14:44)
[2019-11-20 11:36] LABS: Basophils Absolute Auto 0 /uL (0-100); Eosinophils Absolute Auto 0 /uL (0-450); Hemoglobin 11.9 g/dL (13.5-17.5); Lymphocytes Absolute Auto 1100 /uL (1100-4500); Monocytes Absolute Auto 200 /uL (0-900); Red Cell Distribution Width 18.7 % (11.6-14.8)
[2019-11-20 11:39] LABS: Add Manual Diff / Slide Review NO; Basophils Percent Auto 0.3 % (0-2); Eosinophils Percent Auto 0.5 % (2-4); Hematocrit 35.5 % (41-53); Mean Corpuscular HGB Conc 33.5 % (30-36); Mean Corpuscular Hemoglobin 29.5 PG (26-34); Monocytes Percent Auto 5.9 % (3-14); Neutrophils Absolute Auto 2800 /uL (1500-7000); Neutrophils Percent Auto 66.3 % (50-75); Platelet Count 271 X10^3/uL (150-400); Red Blood Cell Count 4.03 X10^6/uL (4.5-5.9); White Blood Cell Count 4.2 X10^3/uL (4.5-11.0)
[2019-11-20 11:47] LABS: Alanine Aminotransferase 100 IU/L (<50); Albumin 3.7 g/dL (3.5-5.0); Albumin Globulin Ratio 1.1 (1.0-2.8); Alkaline Phosphatase 142 U/L (38-126); Aspartate Aminotransferase 55 IU/L (17-59); BUN Creatinine Ratio 22.2 (6-22); Bilirubin Total 0.5 mg/dL (0.2-1.3); Blood Urea Nitrogen 14 mg/dL (9-20); Calcium 8.8 mg/dL (8.4-10.2); Carbon Dioxide 26 mmol/L (22-32); Chloride 103 mmol/L (98-107); Estimated Glomerular Filt Rate > 60.0 mL/min (>60); Globulin 3.4 g/dL (1.7-4.1); Glucose 106 mg/dL (80-110); HEMOLYSIS < 15 (0-50); Sodium 136 mmol/L (137-145); Total Protein 7.1 g/dL (6.3-8.2)
--- NOTE | 2019-11-20 12:25 | P.PNONC_ITS ---
PN -Subjective Interval history: ID/CC: 68-year-old gentleman with metastatic adenocarcinoma of the lung. History of Present Illness: Kin Campbell is a 68 year old male with past significant smoking history (quitted about in 2009), and COPD. He moved to [facility] from [facility]. He had been followed at [facility] for metastatic left upper lung adenocarcinoma. Kin initially presented with sudden onset left extremity weakness and headache in 05/2018. MR brain on 05/31/2018 showed a 2.1 cm mass in the right posterior parietal lobe with hemorrhage. CT CAP on 06/01/2018 showed a large left suprahilar/paramediastinal mass with extension to the mediastinum and moderate mediastinal adenopathy. There was a 2.5 cm right adrenal mass. He was flown to [facility] on 06/01/2018. He underwent EBUS/FNA on 06/03/2018 and pathology showed malignant epithelial cells consistent with poorly differentiated adenocarcinoma, PD-L1 < 1%. EGFR, ALK, MET and RET were negative. He later proceeded to whole brain radiation therapy completed on 06/28/2018. He then was treated with carboplatin (AUC 4), pemetrexed (500mg/2), and pembrolizumab (200 mg) q21 days x 4 cycles followed by Pembrolizumab maintenance On 12/26/2018, CT CAP showed evidence of disease progression including increase in the size of left upper lobe mass, mediastinal lymphadenopathy, and right adrenal gland nodule. Pembolizumab was then discontinued and patient was started on single agent Gemcitabine 1000 mg/m2 iv on days 1, 8, 15 on a 21-days cycles on 01/03/2019. Repeat CT on 03/18/2019 showed decrease in the ADRIA mass and the right adrenal lesion. After chemotherapy on 05/23/2019, he moved to [place]. On 06/16/2019 MRI brain showed stable brain lesions. CT CAP showed interval decrease in size of left upper lobe mass, mediastinal lymphadenopathy, and right adrenal gland. On 09/18/2019, patient underwent MR brain that showed no evidence of disease recurrence or metastasis. On the same day patient also underwent CT chest abdomen and pelvis that showed the left supra hilar soft tissue mass measuring about 4.4 cm in maximal diameter, small bilateral hilar and mediastinal lymph nodes which do not meet size criteria for adenopathy, 10 mm indeterminate right adrenal nodule likely adenoma and no other evidence of metastatic disease below the diaphragm. Interim Events: Patient presents here today for C5D8 gemcitabine. As usual, he is accompanied by his . Clinically, he has problems with his memory and confused at times. He denies headache. He denies any significant chest pain. No nausea and no vomiting. - Patient Self-Reported Symptoms SR Constitution: Fatigue/Malaise SR eye issues: Vision changes SR ears, nose, mouth, throat issues: Cough, Hoarseness SR respiratory issues: Cough, Shortness of breath, Difficulty breathing SR Cardiovascular issues: Shortness of breath with activity or lying flat SR Skin issues: Dry skin SR Musculoskeletal issues: Cold hands or feet, Difficulty walking SR Endocrine issues: Cold intolerance - Additional ROS All systems PM: reviewed and no additional remarkable complaints except as stated Home Medications and Allergies Home Medications Medication Instructions Recorded Confirmed Type acetaminophen 1,000 mg PO Q6H PRN 06/30/19 10/26/19 History albuterol sulfate 2.5 mg INHALATION Q6H PRN 06/30/19 10/26/19 History albuterol sulfate [Ventolin HFA] 2 puff INHALATION 6XD PRN 06/30/19 10/26/19 History fluticasone propion-salmeterol 1 inh INHALATION BID 06/30/19 10/26/19 History [Advair Diskus] ibuprofen 200 mg PO Q6H PRN 06/30/19 10/26/19 History lidocaine-prilocaine 1 applic TOPICAL QWEEK 06/30/19 10/26/19 History ipratropium 20 mcg-albuterol 100 1 puff INHALATION Q4H 10/26/19 10/26/19 History mcg/actuation mist for inhalation Allergies Allergy/AdvReac Type Severity Reaction Status Date / Time No Known Drug Allergies Allergy Verified 10/26/19 11:47 Exam Vital signs: 11/20/19 22:56 Last Vital Signs Temp 98.2 F 11/20/19 12:27 Pulse 59 L 11/20/19 12:27 Resp 16 11/20/19 12:27 BP 108/67 11/20/19 12:27 Pulse Ox 94 11/13/19 12:11 Narrative: ECOG 1. Gen: WDWN, NAD, pleasant and cooperative, accompanied by his . HEENT: NCAT, EOMI, PERRLA, anicteric sclera. Neck: Supple, No palpable thyromegaly or lymphadenopathy. Respiratory: decreased BS, no wheezes audible. Cardiovascular: RRR, S1 and S2 normal, no M/G/R. Abdomen: Soft, NTND, BS normal, no palpable organomegaly Extremities: No LE pitting edema. Lymphatic: no palpable lymph nodes in the neck, or axillae Neurological: AOx3, CN II-XII grossly intact. No focal motor or sensory deficit. Psychiatric: Normal affect; normal thought process; no depression. Results - Labs Laboratory Last Values WBC 4.2 X10^3/uL (4.5-11.0) L 11/20/19 11: RBC 4.03 X10^6/uL (4.5-5.9) L 11/20/19 11: Hgb 11.9 g/dL (13.5-17.5) L 11/20/19 11:27 Hct 35.5 % (41-53) L 11/20/19 11:27 MCV 88.0 fL (80-100) 11/20/19 11:27 MCH 29.5 PG (26-34) 11/20/19 11: MCHC 33.5 % (30-36) 11/20/19 11: RDW 18.7 % (11.6-14.8) H 11/20/19 11:27 Plt Count 271 X10^3/uL (150-400) 11/20/19 11:27 Neut % (Auto) 66.3 % (50-75) 11/20/19 11:27 Lymph % (Auto) 27.0 % (25-40) 11/20/19 11:27 [place] % (Auto) 5.9 % (3-14) 11/20/19 11:27 Eos % (Auto) 0.5 % (2-4) L 11/20/19 11:27 Baso % (Auto) 0.3 % (0-2) 11/20/19 11:27 Neut # (Auto) 2800 /uL (5306-5822) 11/20/19 11:27 Lymph # (Auto) 1100 /uL (2071-3567) 11/20/19 11:27 [place] # (Auto) 200 /uL (0-900) 11/20/19 11:27 Eos # (Auto) 0 /uL (0-450) 11/20/19 11:27 Baso # (Auto) 0 /uL (0-100) 11/20/19 11:27 Total Counted 100 11/13/19 11:05 Seg Neutrophils % 67.0 % (38-70) 11/13/19 11:05 Band Neutrophils % 1.0 % (3-7) L 11/13/19 11:05 Lymphocytes % (Manual) 17.0 % (25-45) L 11/13/19 11:05 Atypical Lymphs % 2.0 % (-0) H 09/04/19 10:35 Monocytes % (Manual) 12.0 % (2-11) H 11/13/19 11:05 Eosinophils % (Manual) 2.0 % (2-4) 11/13/19 11:05 Basophils % (Manual) 2.0 % (0-1) H 09/04/19 10:35 Metamyelocytes % 1.0 % (-0) H 11/13/19 11:05 Neutrophils # (Manual) 3808 /uL (1937-4014) 11/13/19 11:05 Platelet Estimate Increased on smear 07/31/19 10:22 RBC Morphology See below 11/13/19 11:05 Anisocytosis 1+ H 11/13/19 11:05 Sodium 136 mmol/L (137-145) L 11/20/19 11:27 Potassium 4.0 mmol/L (3.4-5.1) 11/20/19 11:27 Chloride 103 mmol/L (98-107) 11/20/19 11:27 Carbon Dioxide 26 mmol/L (22-32) 11/20/19 11:27 BUN 14 mg/dL (9-20) 11/20/19 11:27 Creatinine 0.63 mg/dL (0.66-1.25) L 11/20/19 11:27 Estimated GFR > 60.0 mL/min (>60) 11/20/19 11:27 BUN/Creatinine Ratio 22.2 (6-22) H 11/20/19 11:27 Glucose 106 mg/dL (80-110) 11/20/19 11:27 Calcium 8.8 mg/dL (8.4-10.2) 11/20/19 11:27 Total Bilirubin 0.5 mg/dL (0.2-1.3) 11/20/19 11:27 AST 55 IU/L (17-59) 11/20/19 11:27 ALT 100 IU/L (<50) H 11/20/19 11:27 Alkaline Phosphatase 142 U/L (38-126) H 11/20/19 11:27 Total Protein 7.1 g/dL (6.3-8.2) 11/20/19 11:27 Albumin 3.7 g/dL (3.5-5.0) 11/20/19 11:27 Globulin 3.4 g/dL (1.7-4.1) 11/20/19 11:27 Albumin/Globulin Ratio 1.1 (1.0-2.8) 11/20/19 11:27 Assessment and Plan (1) Adenocarcinoma of left lung, stage 4 Overview: Stage IV left upper lung poorly differentiated adenocarcinoma, PD-L1 < 1%. EGFR, ALK, MET and RET were negative, diagnosed in 05/2018. He underwent whole brain radiation therapy on 06/28/2018, then received carboplatin (AUC 4), pemetrexed (500mg/2), and pembrolizumab (200 mg) q21 days x 4 cycles followed by Pembrolizumab maintenance. Due to disease progression, patient was started on single agent gemcitabine since 01/03/2019. Assessment: Today, I reviewed the laboratory results with the patient. CBC is unremarkable. But CMP showed elevated serum ALT level. He had gemcitabine infusion on 09/2019. I explained to patient and his that the abnormal liver function most likely is due to the chemotherapy. However, we can not exclude the possibility of liver metastasis. His previous CT CAP was about 2-3 months ago. I recommended that we hold gemcitabine for now, and will get restaging CT scan. Plan: 1. Hold Gemcitabine for now. 2. CT CAP w/contrast 3. RTC after the scan. (2) Port-A-Cath in place Flush every 4-6 weeks
[2019-11-20 12:27] VITALS: BP 108/67; PULSE 59; RESP 16; TEMP 36.8
[2019-12-04 09:46] LABS: Add Manual Diff / Slide Review NO; Basophils Absolute Auto 100 /uL (0-100); Basophils Percent Auto 1.5 % (0-2); Eosinophils Absolute Auto 100 /uL (0-450); Eosinophils Percent Auto 2.6 % (2-4); Hematocrit 39.3 % (41-53); Hemoglobin 12.9 g/dL (13.5-17.5); Lymphocytes Absolute Auto 1400 /uL (1100-4500); Lymphocytes Percent Auto 26.6 % (25-40); Mean Corpuscular HGB Conc 32.9 % (30-36); Mean Corpuscular Hemoglobin 29.5 PG (26-34); Mean Corpuscular Volume 89.5 fL (80-100); Monocytes Absolute Auto 600 /uL (0-900); Monocytes Percent Auto 11.2 % (3-14); Neutrophils Absolute Auto 3000 /uL (1500-7000); Neutrophils Percent Auto 58.1 % (50-75); Platelet Count 325 X10^3/uL (150-400); Red Blood Cell Count 4.39 X10^6/uL (4.5-5.9); Red Cell Distribution Width 20.2 % (11.6-14.8); White Blood Cell Count 5.2 X10^3/uL (4.5-11.0)
[2019-12-04 10:02] LABS: Alanine Aminotransferase 45 IU/L (<50); Albumin 3.9 g/dL (3.5-5.0); Albumin Globulin Ratio 1.3 (1.0-2.8); Alkaline Phosphatase 120 U/L (38-126); Aspartate Aminotransferase 39 IU/L (17-59); BUN Creatinine Ratio 22.8 (6-22); Bilirubin Total 0.4 mg/dL (0.2-1.3); Blood Urea Nitrogen 13 mg/dL (9-20); Carbon Dioxide 27 mmol/L (22-32); Chloride 107 mmol/L (98-107); Estimated Glomerular Filt Rate > 60.0 mL/min (>60); Globulin 2.9 g/dL (1.7-4.1); Glucose 83 mg/dL (80-110); HEMOLYSIS < 15 (0-50); Potassium 3.9 mmol/L (3.4-5.1); Sodium 138 mmol/L (137-145); Total Protein 6.8 g/dL (6.3-8.2)
[2019-12-04 10:42] LABS: Anisocytosis 1+
--- NOTE | 2019-12-11 08:13 | ONC.PN ---
PN -Subjective Interval history: ID/CC: 69-year-old gentleman with metastatic adenocarcinoma of the lung. Treatment Summary: 1. Whole brain radiation therapy completed on 06/28/2018 2. Carboplatin (AUC 4), pemetrexed (500mg/2), and pembrolizumab (200 mg) q21 days x 4 cycles 3. Pembrolizumab maintenance discontinued in 12/2018 due to disease progression 4. Gemciabine 1000 mg/m2 days 1, 8, 15 on a 21-days cycles started on 01/03/2019 History of Present Illness: Kin Campbell is a 69 year old male with past significant smoking history (quitted about in 2009), and COPD. He had been followed at [facility] for metastatic left upper lung adenocarcinoma before He moved to [facility] from [facility]. Kin initially presented with sudden onset left extremity weakness and headache in 05/2018. MR brain on 05/31/2018 showed a 2.1 cm mass in the right posterior parietal lobe with hemorrhage. CT CAP on 06/01/2018 showed a large left suprahilar/paramediastinal mass with extension to the mediastinum and moderate mediastinal adenopathy. There was a 2.5 cm right adrenal mass. He was flown to [facility] on 06/01/2018. He underwent EBUS/FNA on 06/03/2018 and pathology showed malignant epithelial cells consistent with poorly differentiated adenocarcinoma, PD-L1 < 1%. EGFR, ALK, MET and RET were negative. He later proceeded to whole brain radiation therapy completed on 06/28/2018. He then was treated with carboplatin (AUC 4), pemetrexed (500mg/2), and pembrolizumab (200 mg) q21 days x 4 cycles followed by Pembrolizumab maintenance On 12/26/2018, CT CAP showed evidence of disease progression including increase in the size of left upper lobe mass, mediastinal lymphadenopathy, and right adrenal gland nodule. Pembolizumab was then discontinued and patient was started on single agent Gemcitabine 1000 mg/m2 iv on days 1, 8, 15 on a 21-days cycles on 01/03/2019. Repeat CT on 03/18/2019 showed decrease in the ADRIA mass and the right adrenal lesion. After chemotherapy on 05/23/2019, he moved to [place]. On 06/16/2019 MRI brain showed stable brain lesions. CT CAP showed interval decrease in size of left upper lobe mass, mediastinal lymphadenopathy, and right adrenal gland. On 09/18/2019, patient underwent MR brain that showed no evidence of disease recurrence or metastasis. On the same day patient also underwent CT chest abdomen and pelvis that showed the left supra hilar soft tissue mass measuring about 4.4 cm in maximal diameter, small bilateral hilar and mediastinal lymph nodes which do not meet size criteria for adenopathy, 10 mm indeterminate right adrenal nodule likely adenoma and no other evidence of metastatic disease below the diaphragm. Interim Events: After cycle 5 day 8, the chemotherapy has been on hold because of significant elevation of LFT. Out of concern for possible progression of the underlying disease, patient underwent CT of the chest abdomen and pelvis on 12/04/2019. The scan showed small interval reduction in size of a left superior hilar mass, a prior slight prominence of the medial limb of the right adrenal gland resolved, and no evidence of metastatic disease. Clinically, patient is complaining of exertional shortness of breath. He reports no chest pain, no abdominal pain, no diarrhea and no constipation. - Patient Self-Reported Symptoms SR Constitution: Fatigue/Malaise SR eye issues: Vision changes SR ears, nose, mouth, throat issues: Cough, Hoarseness SR respiratory issues: Cough, Shortness of breath, Difficulty breathing SR Cardiovascular issues: Shortness of breath with activity or lying flat SR Skin issues: Dry skin SR Musculoskeletal issues: Cold hands or feet, Difficulty walking SR Endocrine issues: Cold intolerance - Additional ROS All systems PM: reviewed and no additional remarkable complaints except as stated Home Medications and Allergies Home Medications Medication Instructions Recorded Confirmed Type albuterol sulfate [Ventolin HFA] 2 puff INHALATION 6XD PRN 06/30/19 10/26/19 History fluticasone propion-salmeterol 1 inh INHALATION BID 06/30/19 10/26/19 History [Advair Diskus] lidocaine-prilocaine 1 applic TOPICAL QWEEK 06/30/19 10/26/19 History ipratropium-albuterol 3 ml INHALATION Q6H PRN 12/11/19 12/11/19 History Allergies Allergy/AdvReac Type Severity Reaction Status Date / Time No Known Drug Allergies Allergy Verified 10/26/19 11:47 Exam Vital signs: 12/11/19 08:42 Last Vital Signs Temp 97.6 F 12/11/19 08:21 Pulse 66 12/11/19 08:21 Resp 18 12/11/19 08:21 BP 121/76 12/11/19 08:21 Pulse Ox 98 12/11/19 08:21 Narrative: ECOG 1. Gen: WDWN, NAD, pleasant and cooperative. HEENT: NCAT, EOMI, PERRLA, anicteric sclera. Neck: Supple, No palpable thyromegaly or lymphadenopathy. Respiratory: decreased BS, no wheezes audible. Cardiovascular: RRR, S1 and S2 normal, no M/G/R. Abdomen: Soft, NTND, BS normal, no palpable organomegaly Extremities: No LE pitting edema. Lymphatic: no palpable lymph nodes in the neck, or axillae Neurological: AOx3, CN II-XII grossly intact. No focal motor or sensory deficit. Psychiatric: Normal affect; normal thought process; no depression. Results - Labs Laboratory Last Values WBC 4.7 X10^3/uL (4.5-11.0) 12/11/19 08:40 RBC 4.54 X10^6/uL (4.5-5.9) 12/11/19 08:40 Hgb 13.5 g/dL (13.5-17.5) 12/11/19 08:40 Hct 40.6 % (41-53) L 12/11/19 08:40 MCV 89.6 fL (80-100) 12/11/19 08:40 MCH 29.8 PG (26-34) 12/11/19 08:40 MCHC 33.3 % (30-36) 12/11/19 08:40 RDW 19.5 % (11.6-14.8) H 12/11/19 08:40 Plt Count 264 X10^3/uL (150-400) 12/11/19 08:40 Neut % (Auto) 53.9 % (50-75) 12/11/19 08:40 Lymph % (Auto) 28.5 % (25-40) 12/11/19 08:40 [place] % (Auto) 13.0 % (3-14) 12/11/19 08:40 Eos % (Auto) 3.2 % (2-4) 12/11/19 08:40 Baso % (Auto) 1.4 % (0-2) 12/11/19 08:40 Neut # (Auto) 2600 /uL (2087-1763) 12/11/19 08:40 Lymph # (Auto) 1400 /uL (6085-3131) 12/11/19 08:40 [place] # (Auto) 600 /uL (0-900) 12/11/19 08:40 Eos # (Auto) 100 /uL (0-450) 12/11/19 08:40 Baso # (Auto) 100 /uL (0-100) 12/11/19 08:40 Total Counted 100 11/13/19 11:05 Seg Neutrophils % 67.0 % (38-70) 11/13/19 11:05 Band Neutrophils % 1.0 % (3-7) L 11/13/19 11:05 Lymphocytes % (Manual) 17.0 % (25-45) L 11/13/19 11:05 Atypical Lymphs % 2.0 % (-0) H 09/04/19 10:35 Monocytes % (Manual) 12.0 % (2-11) H 11/13/19 11:05 Eosinophils % (Manual) 2.0 % (2-4) 11/13/19 11:05 Basophils % (Manual) 2.0 % (0-1) H 09/04/19 10:35 Metamyelocytes % 1.0 % (-0) H 11/13/19 11:05 Neutrophils # (Manual) 3808 /uL (4646-5841) 11/13/19 11:05 Platelet Estimate Increased on smear 07/31/19 10:22 RBC Morphology See below 12/04/19 09:30 Anisocytosis 1+ H 12/04/19 09:30 Sodium 137 mmol/L (137-145) 12/11/19 08:40 Potassium 4.5 mmol/L (3.4-5.1) 12/11/19 08:40 Chloride 105 mmol/L (98-107) 12/11/19 08:40 Carbon Dioxide 29 mmol/L (22-32) 12/11/19 08:40 BUN 19 mg/dL (9-20) 12/11/19 08:40 Creatinine 0.60 mg/dL (0.66-1.25) L 12/11/19 08:40 Estimated GFR > 60.0 mL/min (>60) 12/11/19 08:40 BUN/Creatinine Ratio 31.7 (6-22) H 12/11/19 08:40 Glucose 109 mg/dL (80-110) 12/11/19 08:40 Calcium 8.8 mg/dL (8.4-10.2) 12/11/19 08:40 Total Bilirubin 0.3 mg/dL (0.2-1.3) 12/11/19 08:40 AST 35 IU/L (17-59) 12/11/19 08:40 ALT 34 IU/L (<50) 12/11/19 08:40 Alkaline Phosphatase 113 U/L (38-126) 12/11/19 08:40 Total Protein 6.7 g/dL (6.3-8.2) 12/11/19 08:40 Albumin 3.8 g/dL (3.5-5.0) 12/11/19 08:40 Globulin 2.9 g/dL (1.7-4.1) 12/11/19 08:40 Albumin/Globulin Ratio 1.3 (1.0-2.8) 12/11/19 08:40 Assessment and Plan (1) Adenocarcinoma of left lung, stage 4 Overview: Stage IV left upper lung poorly differentiated adenocarcinoma, PD-L1 < 1%. EGFR, ALK, MET and RET were negative, diagnosed in 05/2018. He underwent whole brain radiation therapy on 06/28/2018, then received carboplatin (AUC 4), pemetrexed (500mg/2), and pembrolizumab (200 mg) q21 days x 4 cycles followed by Pembrolizumab maintenance. Due to disease progression, patient was started on single agent gemcitabine since 01/03/2019. Assessment: Today I reviewed the CT scan results from 12/04/2019 with the patient. It showed actually continued improvement of the left hilar mass as well as the right adrenal gland prominence. There is no evidence of metastasis in other organ systems. I talked with the patient that the results indicate the gemcitabine is an effective therapy for the lung cancer. After we held the treatment on 11/13/2019, follow-up LFT has normalized. Today again patient denies ever using any new medications or new supplements. I talked with him the most likely cause for the abnormal LFT is the chemotherapy itself. I talked with him and his that it is a balance between toxicity and efficacy. I recommended that we resume the treatment with close monitoring. If the LFT is more than 3 times upper limit normal, we will postpone treatment accordingly by about 1 week. Patient and patient's both voiced understanding. Plan: 1. Resume Gemcitabine regimen today. 2. RTC on 01/01/2020, labs per protocol. (2) Port-A-Cath in place Flush every 4-6 weeks
[2019-12-11 08:21] VITALS: BP 121/76; PULSE 66; RESP 18; TEMP 36.4; O2SAT 98
[2019-12-11 09:01] LABS: Add Manual Diff / Slide Review NO; Basophils Absolute Auto 100 /uL (0-100); Basophils Percent Auto 1.4 % (0-2); Eosinophils Absolute Auto 100 /uL (0-450); Eosinophils Percent Auto 3.2 % (2-4); Hematocrit 40.6 % (41-53); Hemoglobin 13.5 g/dL (13.5-17.5); Lymphocytes Absolute Auto 1400 /uL (1100-4500); Lymphocytes Percent Auto 28.5 % (25-40); Mean Corpuscular HGB Conc 33.3 % (30-36); Mean Corpuscular Hemoglobin 29.8 PG (26-34); Mean Corpuscular Volume 89.6 fL (80-100); Monocytes Absolute Auto 600 /uL (0-900); Neutrophils Absolute Auto 2600 /uL (1500-7000); Neutrophils Percent Auto 53.9 % (50-75); Platelet Count 264 X10^3/uL (150-400); Red Blood Cell Count 4.54 X10^6/uL (4.5-5.9); Red Cell Distribution Width 19.5 % (11.6-14.8); White Blood Cell Count 4.7 X10^3/uL (4.5-11.0)
[2019-12-11 09:19] LABS: Alanine Aminotransferase 34 IU/L (<50); Albumin 3.8 g/dL (3.5-5.0); Albumin Globulin Ratio 1.3 (1.0-2.8); Alkaline Phosphatase 113 U/L (38-126); Aspartate Aminotransferase 35 IU/L (17-59); BUN Creatinine Ratio 31.7 (6-22); Bilirubin Total 0.3 mg/dL (0.2-1.3); Blood Urea Nitrogen 19 mg/dL (9-20); Calcium 8.8 mg/dL (8.4-10.2); Carbon Dioxide 29 mmol/L (22-32); Chloride 105 mmol/L (98-107); Estimated Glomerular Filt Rate > 60.0 mL/min (>60); Globulin 2.9 g/dL (1.7-4.1); Glucose 109 mg/dL (80-110); HEMOLYSIS < 15 (0-50); Potassium 4.5 mmol/L (3.4-5.1); Sodium 137 mmol/L (137-145); Total Protein 6.7 g/dL (6.3-8.2)
[2019-12-11] MEDS: DEXAMETHASONE 10 MG/ML VIAL 8 MG IV (09:22)
[2019-12-11] MEDS: ONDANSETRON 8 MG in SODIUM CHLORIDE 0.9% 50 ML 216 ML IV (10:15)
[2019-12-11] MEDS: GEMCITABINE HCL IV (11:04)
[2019-12-11] MEDS: SODIUM CHLORIDE 0.9% IV (11:04)
[2019-12-18 10:55] LABS: Add Manual Diff / Slide Review NO; Basophils Absolute Auto 0 /uL (0-100); Basophils Percent Auto 1.3 % (0-2); Eosinophils Absolute Auto 0 /uL (0-450); Eosinophils Percent Auto 0.5 % (2-4); Hematocrit 39.8 % (41-53); Hemoglobin 12.8 g/dL (13.5-17.5); Lymphocytes Absolute Auto 1200 /uL (1100-4500); Lymphocytes Percent Auto 36.2 % (25-40); Mean Corpuscular HGB Conc 32.2 % (30-36); Mean Corpuscular Hemoglobin 28.6 PG (26-34); Mean Corpuscular Volume 88.9 fL (80-100); Monocytes Absolute Auto 200 /uL (0-900); Neutrophils Absolute Auto 1900 /uL (1500-7000); Platelet Count 174 X10^3/uL (150-400); Red Blood Cell Count 4.47 X10^6/uL (4.5-5.9); Red Cell Distribution Width 18.3 % (11.6-14.8); White Blood Cell Count 3.4 X10^3/uL (4.5-11.0)
[2019-12-18 11:08] LABS: Alanine Aminotransferase 47 IU/L (<50); Albumin 3.8 g/dL (3.5-5.0); Albumin Globulin Ratio 1.4 (1.0-2.8); Alkaline Phosphatase 113 U/L (38-126); Aspartate Aminotransferase 38 IU/L (17-59); BUN Creatinine Ratio 23.8 (6-22); Bilirubin Total 0.4 mg/dL (0.2-1.3); Blood Urea Nitrogen 15 mg/dL (9-20); Calcium 8.9 mg/dL (8.4-10.2); Carbon Dioxide 28 mmol/L (22-32); Chloride 105 mmol/L (98-107); Estimated Glomerular Filt Rate > 60.0 mL/min (>60); Globulin 2.8 g/dL (1.7-4.1); Glucose 117 mg/dL (80-110); HEMOLYSIS < 15 (0-50); Potassium 4.3 mmol/L (3.4-5.1); Sodium 137 mmol/L (137-145); Total Protein 6.6 g/dL (6.3-8.2)
[2019-12-18 11:20] VITALS: BP 134/82; PULSE 60; RESP 16; TEMP 36.6; O2SAT 98
[2019-12-18] MEDS: SODIUM CHLORIDE 0.9% 100 ML 21 ML IV (12:22)
[2019-12-18] MEDS: DEXAMETHASONE 10 MG/ML VIAL 8 MG IV (12:25)
[2019-12-18] MEDS: ONDANSETRON 8 MG in SODIUM CHLORIDE 0.9% 50 ML 216 ML IV (12:27)
[2019-12-18] MEDS: SODIUM CHLORIDE 0.9% IV (12:58)
[2019-12-18] MEDS: GEMCITABINE HCL IV (12:58)
[2020-01-01 08:54] LABS: Add Manual Diff / Slide Review NO; Basophils Absolute Auto 0 /uL (0-100); Basophils Percent Auto 0.9 % (0-2); Eosinophils Absolute Auto 100 /uL (0-450); Eosinophils Percent Auto 1.9 % (2-4); Hematocrit 38.6 % (41-53); Hemoglobin 12.6 g/dL (13.5-17.5); Lymphocytes Absolute Auto 1100 /uL (1100-4500); Lymphocytes Percent Auto 26.9 % (25-40); Mean Corpuscular HGB Conc 32.7 % (30-36); Mean Corpuscular Hemoglobin 28.8 PG (26-34); Mean Corpuscular Volume 88.1 fL (80-100); Monocytes Absolute Auto 400 /uL (0-900); Monocytes Percent Auto 10.4 % (3-14); Neutrophils Absolute Auto 2300 /uL (1500-7000); Neutrophils Percent Auto 59.9 % (50-75); Platelet Count 351 X10^3/uL (150-400); Red Blood Cell Count 4.38 X10^6/uL (4.5-5.9); Red Cell Distribution Width 19.6 % (11.6-14.8); White Blood Cell Count 3.9 X10^3/uL (4.5-11.0)
[2020-01-01 09:03] VITALS: BP 107/66; PULSE 64; RESP 16; TEMP 36.6; O2SAT 97
[2020-01-01 09:18] LABS: Alanine Aminotransferase 41 IU/L (<50); Albumin 3.7 g/dL (3.5-5.0); Albumin Globulin Ratio 1.4 (1.0-2.8); Alkaline Phosphatase 109 U/L (38-126); Aspartate Aminotransferase 37 IU/L (17-59); BUN Creatinine Ratio 21.3 (6-22); Bilirubin Total 0.4 mg/dL (0.2-1.3); Blood Urea Nitrogen 13 mg/dL (9-20); Calcium 8.8 mg/dL (8.4-10.2); Carbon Dioxide 27 mmol/L (22-32); Chloride 105 mmol/L (98-107); Estimated Glomerular Filt Rate > 60.0 mL/min (>60); Globulin 2.7 g/dL (1.7-4.1); Glucose 147 mg/dL (80-110); HEMOLYSIS < 15 (0-50); Potassium 3.9 mmol/L (3.4-5.1); Sodium 137 mmol/L (137-145); Total Protein 6.4 g/dL (6.3-8.2)
--- NOTE | 2020-01-01 09:25 | ONC.PN ---
PN -Subjective Interval history: ID/CC: 69-year-old gentleman with metastatic adenocarcinoma of the lung. Treatment Summary: 1. Whole brain radiation therapy completed on 06/28/2018 2. Carboplatin (AUC 4), pemetrexed (500mg/2), and pembrolizumab (200 mg) q21 days x 4 cycles 3. Pembrolizumab maintenance discontinued in 12/2018 due to disease progression 4. Gemciabine 1000 mg/m2 days 1, 8, 15 on a 21-days cycles started on 01/03/2019 History of Present Illness: Kin Campbell is a 69 year old male with past significant smoking history (quitted about in 2009), and COPD. He had been followed at [facility] for metastatic left upper lung adenocarcinoma before He moved to [facility] from [facility]. Kin initially presented with sudden onset left extremity weakness and headache in 05/2018. MR brain on 05/31/2018 showed a 2.1 cm mass in the right posterior parietal lobe with hemorrhage. CT CAP on 06/01/2018 showed a large left suprahilar/paramediastinal mass with extension to the mediastinum and moderate mediastinal adenopathy. There was a 2.5 cm right adrenal mass. He was flown to [facility] on 06/01/2018. He underwent EBUS/FNA on 06/03/2018 and pathology showed malignant epithelial cells consistent with poorly differentiated adenocarcinoma, PD-L1 < 1%. EGFR, ALK, MET and RET were negative. He later proceeded to whole brain radiation therapy completed on 06/28/2018. He then was treated with carboplatin (AUC 4), pemetrexed (500mg/2), and pembrolizumab (200 mg) q21 days x 4 cycles followed by Pembrolizumab maintenance On 12/26/2018, CT CAP showed evidence of disease progression including increase in the size of left upper lobe mass, mediastinal lymphadenopathy, and right adrenal gland nodule. Pembolizumab was then discontinued and patient was started on single agent Gemcitabine 1000 mg/m2 iv on days 1, 8, 15 on a 21-days cycles on 01/03/2019. Repeat CT on 03/18/2019 showed decrease in the ADRIA mass and the right adrenal lesion. After chemotherapy on 05/23/2019, he moved to [place]. On 06/16/2019 MRI brain showed stable brain lesions. CT CAP showed interval decrease in size of left upper lobe mass, mediastinal lymphadenopathy, and right adrenal gland. On 09/18/2019, patient underwent MR brain that showed no evidence of disease recurrence or metastasis. On the same day patient also underwent CT chest abdomen and pelvis that showed the left supra hilar soft tissue mass measuring about 4.4 cm in maximal diameter, small bilateral hilar and mediastinal lymph nodes which do not meet size criteria for adenopathy, 10 mm indeterminate right adrenal nodule likely adenoma and no other evidence of metastatic disease below the diaphragm. Interim Events: After cycle 5 day 8, the chemotherapy has been on hold because of significant elevation of LFT. Out of concern for possible progression of the underlying disease, patient underwent CT of the chest abdomen and pelvis on 12/04/2019. The scan showed small interval reduction in size of a left superior hilar mass, a prior slight prominence of the medial limb of the right adrenal gland resolved, and no evidence of metastatic disease. On 12/11/2019, patient resumed the treatment with gemcitabine. He presents today for scheduled follow-up visit. Clinically patient has been doing well without any new complaints. Especially patient denies any shortness of breath or chest pain. No abdominal pain no diarrhea and no constipation. - Patient Self-Reported Symptoms SR Constitution: Fatigue/Malaise SR eye issues: Eye pain SR ears, nose, mouth, throat issues: Cough, Hoarseness SR respiratory issues: Shortness of breath SR Cardiovascular issues: Shortness of breath with activity or lying flat SR Skin issues: Dry skin SR Musculoskeletal issues: Muscle pain or cramps SR Endocrine issues: Cold intolerance - Additional ROS All systems PM: reviewed and no additional remarkable complaints except as stated Home Medications and Allergies Home Medications Medication Instructions Recorded Confirmed Type albuterol sulfate [Ventolin HFA] 2 puff INHALATION 6XD PRN 06/30/19 01/01/20 History fluticasone propion-salmeterol 1 inh INHALATION BID 06/30/19 01/01/20 History [Advair Diskus] lidocaine-prilocaine 1 applic TOPICAL QWEEK 06/30/19 01/01/20 History ipratropium-albuterol 3 ml INHALATION Q6H PRN 12/11/19 01/01/20 History gemcitabine in 0.9 % NaCl 1,800 1,000 mg IV QWEEK 12/24/19 01/01/20 History mg/180 mL (10 mg/mL) in 0.9 % sod.chlor IV piggyback Allergies Allergy/AdvReac Type Severity Reaction Status Date / Time No Known Drug Allergies Allergy Verified 12/24/19 13:25 Exam Vital signs: Vital Signs Temp Pulse Resp BP Pulse Ox 01/01/20 09:03 97.8 F 64 16 107/66 97 Intake and Output 12/31/19 01/01/20 01/01/20 23:59 07:59 15:59 Other: Weight 66.8 kg Patient Weight 01/01/20 23:59 Weight 66.8 kg Narrative: ECOG 1. Gen: WDWN, NAD, pleasant and cooperative. HEENT: NCAT, EOMI, PERRLA, anicteric sclera. Neck: Supple, No palpable thyromegaly or lymphadenopathy. Respiratory: decreased BS, no wheezes audible. Cardiovascular: RRR, S1 and S2 normal, no M/G/R. Abdomen: Soft, NTND, BS normal, no palpable organomegaly Extremities: No LE pitting edema. Lymphatic: no palpable lymph nodes in the neck, or axillae Neurological: AOx3, CN II-XII grossly intact. No focal motor or sensory deficit. Psychiatric: Normal affect; normal thought process; no depression. Results - Labs Laboratory Last Values WBC 3.9 X10^3/uL (4.5-11.0) L 01/01/20 08:45 RBC 4.38 X10^6/uL (4.5-5.9) L 01/01/20 08:45 Hgb 12.6 g/dL (13.5-17.5) L 01/01/20 08:45 Hct 38.6 % (41-53) L 01/01/20 08:45 MCV 88.1 fL (80-100) 01/01/20 08:45 MCH 28.8 PG (26-34) 01/01/20 08:45 MCHC 32.7 % (30-36) 01/01/20 08:45 RDW 19.6 % (11.6-14.8) H 01/01/20 08:45 Plt Count 351 X10^3/uL (150-400) 01/01/20 08:45 Neut % (Auto) 59.9 % (50-75) 01/01/20 08:45 Lymph % (Auto) 26.9 % (25-40) 01/01/20 08:45 [place] % (Auto) 10.4 % (3-14) 01/01/20 08:45 Eos % (Auto) 1.9 % (2-4) L 01/01/20 08:45 Baso % (Auto) 0.9 % (0-2) 01/01/20 08:45 Neut # (Auto) 2300 /uL (8721-4036) 01/01/20 08:45 Lymph # (Auto) 1100 /uL (0631-4991) 01/01/20 08:45 [place] # (Auto) 400 /uL (0-900) 01/01/20 08:45 Eos # (Auto) 100 /uL (0-450) 01/01/20 08:45 Baso # (Auto) 0 /uL (0-100) 01/01/20 08:45 Total Counted 100 11/13/19 11:05 Seg Neutrophils % 67.0 % (38-70) 11/13/19 11:05 Band Neutrophils % 1.0 % (3-7) L 11/13/19 11:05 Lymphocytes % (Manual) 17.0 % (25-45) L 11/13/19 11:05 Atypical Lymphs % 2.0 % (-0) H 09/04/19 10:35 Monocytes % (Manual) 12.0 % (2-11) H 11/13/19 11:05 Eosinophils % (Manual) 2.0 % (2-4) 11/13/19 11:05 Basophils % (Manual) 2.0 % (0-1) H 09/04/19 10:35 Metamyelocytes % 1.0 % (-0) H 11/13/19 11:05 Neutrophils # (Manual) 3808 /uL (8666-0520) 11/13/19 11:05 Platelet Estimate Increased on smear 07/31/19 10:22 RBC Morphology See below 12/04/19 09:30 Anisocytosis 1+ H 12/04/19 09:30 Sodium 137 mmol/L (137-145) 01/01/20 08:45 Potassium 3.9 mmol/L (3.4-5.1) 01/01/20 08:45 Chloride 105 mmol/L (98-107) 01/01/20 08:45 Carbon Dioxide 27 mmol/L (22-32) 01/01/20 08:45 BUN 13 mg/dL (9-20) 01/01/20 08:45 Creatinine 0.61 mg/dL (0.66-1.25) L 01/01/20 08:45 Estimated GFR > 60.0 mL/min (>60) 01/01/20 08:45 BUN/Creatinine Ratio 21.3 (6-22) 01/01/20 08:45 Glucose 147 mg/dL (80-110) H 01/01/20 08:45 Calcium 8.8 mg/dL (8.4-10.2) 01/01/20 08:45 Total Bilirubin 0.4 mg/dL (0.2-1.3) 01/01/20 08:45 AST 37 IU/L (17-59) 01/01/20 08:45 ALT 41 IU/L (<50) 01/01/20 08:45 Alkaline Phosphatase 109 U/L (38-126) 01/01/20 08:45 Total Protein 6.4 g/dL (6.3-8.2) 01/01/20 08:45 Albumin 3.7 g/dL (3.5-5.0) 01/01/20 08:45 Globulin 2.7 g/dL (1.7-4.1) 01/01/20 08:45 Albumin/Globulin Ratio 1.4 (1.0-2.8) 01/01/20 08:45 Assessment and Plan (1) Adenocarcinoma of left lung, stage 4 Overview: Stage IV left upper lung poorly differentiated adenocarcinoma, PD-L1 < 1%. EGFR, ALK, MET and RET were negative, diagnosed in 05/2018. He underwent whole brain radiation therapy on 06/28/2018, then received carboplatin (AUC 4), pemetrexed (500mg/2), and pembrolizumab (200 mg) q21 days x 4 cycles followed by Pembrolizumab maintenance. Due to disease progression, patient was started on single agent gemcitabine since 01/03/2019. Assessment: Gemcitabine has been on hold since 11/13/2019 because of abnormal liver function test. CT scan results from 12/04/2019 showed continued improvement of the left hilar mass as well as the right adrenal gland prominence and no evidence of metastasis in other organ systems, indicating that gemcitabine is an effective therapy for his lung cancer. Today I reviewed the CBCs and CMPs with the patient and his . The CBCs are unremarkable. The liver function tests have completely normalized. Once again I talked with them that I believe that the liver function test probably is related to the chemotherapy itself. I talked with them that I will resume the chemotherapy with close monitoring of the liver function test. Plan: 1. Ok to proceed to Gemcitabine today. 2. RTC on 01/15/2020, labs per protocol. (2) Port-A-Cath in place Flush every 4-6 weeks
[2020-01-01] MEDS: DEXAMETHASONE 10 MG/ML VIAL 8 MG IV (10:09)
[2020-01-01] MEDS: ONDANSETRON 8 MG in SODIUM CHLORIDE 0.9% 50 ML 216 ML IV (10:09)
[2020-01-01] MEDS: SODIUM CHLORIDE 0.9% 100 ML 21 ML IV (10:09)
[2020-01-01] MEDS: SODIUM CHLORIDE 0.9% IV (10:49)
[2020-01-01] MEDS: GEMCITABINE HCL IV (10:49)
[2020-01-08 10:56] LABS: Hematocrit 37.9 % (41-53); Hemoglobin 12.6 g/dL (13.5-17.5); Mean Corpuscular HGB Conc 33.3 % (30-36); Mean Corpuscular Hemoglobin 29.3 PG (26-34); Platelet Count 309 X10^3/uL (150-400); Red Cell Distribution Width 19.3 % (11.6-14.8)
[2020-01-08 11:02] LABS: Add Manual Diff / Slide Review YES
[2020-01-08 11:03] LABS: White Blood Cell Count 1.8 X10^3/uL (4.5-11.0)
[2020-01-08 11:05] VITALS: BP 128/76; PULSE 69; RESP 16; TEMP 36.7; O2SAT 96
[2020-01-08 11:08] LABS: Alanine Aminotransferase 66 IU/L (<50); Albumin 3.7 g/dL (3.5-5.0); Albumin Globulin Ratio 1.4 (1.0-2.8); Alkaline Phosphatase 108 U/L (38-126); Aspartate Aminotransferase 42 IU/L (17-59); Bilirubin Total 0.5 mg/dL (0.2-1.3); Blood Urea Nitrogen 14 mg/dL (9-20); Calcium 8.7 mg/dL (8.4-10.2); Carbon Dioxide 28 mmol/L (22-32); Chloride 104 mmol/L (98-107); Estimated Glomerular Filt Rate > 60.0 mL/min (>60); Globulin 2.7 g/dL (1.7-4.1); Glucose 177 mg/dL (80-110); HEMOLYSIS 16 (0-50); Sodium 135 mmol/L (137-145); Total Protein 6.4 g/dL (6.3-8.2)
[2020-01-08 11:18] LABS: Neutrophils Absolute Manual 396 /uL (3000-5900); Total Cells Counted 50
[2020-01-08 11:19] LABS: Anisocytosis 2+; Poikilocytosis 1+
--- NOTE | 2020-01-08 11:54 | PC.NURSE ---
Patient's ANC [id number], both triage nurse (Cristi) and I confirmed with Dr. Saleem that patient was to continue with Day [address]. [address] Saleem if patient needed filgrastim after today's treatment, provider did not feel it was necessary at this time. Piedad Hernandez [facility]
--- NOTE | 2020-01-08 12:00 | PC.NURSE ---
WBC and ANC reported to Dr. Saleem, no new orders. Pt was educated on when to seek emergency care. If patient becomes febrile he was instructed to go to the ER. Patient verbalized understanding.
[2020-01-08] MEDS: ONDANSETRON 8 MG in SODIUM CHLORIDE 0.9% 50 ML 216 ML IV (12:19)
[2020-01-08] MEDS: SODIUM CHLORIDE 0.9% 100 ML 21 ML IV (12:19)
[2020-01-08] MEDS: DEXAMETHASONE 10 MG/ML VIAL 8 MG IV (12:19)
[2020-01-15 11:00] VITALS: BP 129/68; PULSE 61; RESP 18; TEMP 36.3; O2SAT 95
[2020-01-15 11:00] LABS: Basophils Absolute Auto 100 /uL (0-100); Eosinophils Absolute Auto 0 /uL (0-450); Eosinophils Percent Auto 0.7 % (2-4); Lymphocytes Absolute Auto 1300 /uL (1100-4500); Monocytes Absolute Auto 900 /uL (0-900); Neutrophils Absolute Auto 4400 /uL (1500-7000)
[2020-01-15 11:04] LABS: Add Manual Diff / Slide Review NO; Basophils Percent Auto 1.1 % (0-2); Hemoglobin 13.2 g/dL (13.5-17.5); Lymphocytes Percent Auto 19.4 % (25-40); Mean Corpuscular HGB Conc 33.1 % (30-36); Mean Corpuscular Hemoglobin 29.3 PG (26-34); Mean Corpuscular Volume 88.7 fL (80-100); Neutrophils Percent Auto 65.8 % (50-75); Platelet Count 210 X10^3/uL (150-400); Red Blood Cell Count 4.51 X10^6/uL (4.5-5.9); Red Cell Distribution Width 20.6 % (11.6-14.8); White Blood Cell Count 6.7 X10^3/uL (4.5-11.0)
[2020-01-15 11:11] LABS: Alanine Aminotransferase 43 IU/L (<50); Albumin 3.8 g/dL (3.5-5.0); Albumin Globulin Ratio 1.4 (1.0-2.8); Alkaline Phosphatase 100 U/L (38-126); Aspartate Aminotransferase 29 IU/L (17-59); BUN Creatinine Ratio 21.5 (6-22); Bilirubin Total 0.5 mg/dL (0.2-1.3); Blood Urea Nitrogen 14 mg/dL (9-20); Calcium 8.8 mg/dL (8.4-10.2); Carbon Dioxide 30 mmol/L (22-32); Chloride 104 mmol/L (98-107); Estimated Glomerular Filt Rate > 60.0 mL/min (>60); Globulin 2.7 g/dL (1.7-4.1); Glucose 109 mg/dL (80-110); HEMOLYSIS < 15 (0-50); Potassium 4.1 mmol/L (3.4-5.1); Sodium 137 mmol/L (137-145); Total Protein 6.5 g/dL (6.3-8.2)
[2020-01-15 11:33] LABS: Anisocytosis 2+
[2020-01-15] MEDS: SODIUM CHLORIDE 0.9% 100 ML 21 ML IV (11:47)
[2020-01-15] MEDS: ONDANSETRON 8 MG in SODIUM CHLORIDE 0.9% 50 ML 216 ML IV (11:47)
[2020-01-15] MEDS: DEXAMETHASONE 10 MG/ML VIAL 8 MG IV (11:48)
[2020-01-15 11:56] LABS: Magnesium 2.2 mg/dL (1.6-2.3)
[2020-01-15] MEDS: SODIUM CHLORIDE 0.9% IV (12:23)
[2020-01-15] MEDS: GEMCITABINE HCL IV (12:23)
--- NOTE | 2020-01-29 09:25 | ONC.PN ---
PN -Subjective Interval history: ID/CC: 69-year-old gentleman with metastatic adenocarcinoma of the lung. Treatment Summary: 1. Whole brain radiation therapy completed on 06/28/2018 2. Carboplatin (AUC 4), pemetrexed (500mg/2), and pembrolizumab (200 mg) q21 days x 4 cycles 3. Pembrolizumab maintenance discontinued in 12/2018 due to disease progression 4. Gemciabine 1000 mg/m2 days 1, 8, 15 on a 21-days cycles started on 01/03/2019 History of Present Illness: Kin Campbell is a 69 year old male with past significant smoking history (quitted about in 2009), and COPD. He had been followed at [facility] for metastatic left upper lung adenocarcinoma before He moved to [facility] from [facility]. Kin initially presented with sudden onset left extremity weakness and headache in 05/2018. MR brain on 05/31/2018 showed a 2.1 cm mass in the right posterior parietal lobe with hemorrhage. CT CAP on 06/01/2018 showed a large left suprahilar/paramediastinal mass with extension to the mediastinum and moderate mediastinal adenopathy. There was a 2.5 cm right adrenal mass. He was flown to [facility] on 06/01/2018. He underwent EBUS/FNA on 06/03/2018 and pathology showed malignant epithelial cells consistent with poorly differentiated adenocarcinoma, PD-L1 < 1%. EGFR, ALK, MET and RET were negative. He later proceeded to whole brain radiation therapy completed on 06/28/2018. He then was treated with carboplatin (AUC 4), pemetrexed (500mg/2), and pembrolizumab (200 mg) q21 days x 4 cycles followed by Pembrolizumab maintenance On 12/26/2018, CT CAP showed evidence of disease progression including increase in the size of left upper lobe mass, mediastinal lymphadenopathy, and right adrenal gland nodule. Pembolizumab was then discontinued and patient was started on single agent Gemcitabine 1000 mg/m2 iv on days 1, 8, 15 on a 21-days cycles on 01/03/2019. Repeat CT on 03/18/2019 showed decrease in the ADRIA mass and the right adrenal lesion. After chemotherapy on 05/23/2019, he moved to [place]. On 06/16/2019 MRI brain showed stable brain lesions. CT CAP showed interval decrease in size of left upper lobe mass, mediastinal lymphadenopathy, and right adrenal gland. On 09/18/2019, patient underwent MR brain that showed no evidence of disease recurrence or metastasis. On the same day patient also underwent CT chest abdomen and pelvis that showed the left supra hilar soft tissue mass measuring about 4.4 cm in maximal diameter, small bilateral hilar and mediastinal lymph nodes which do not meet size criteria for adenopathy, 10 mm indeterminate right adrenal nodule likely adenoma and no other evidence of metastatic disease below the diaphragm. On 12/04/2019, CT chest abdomen pelvis showed small interval reduction in size of a left superior hilar mass, a prior slight prominence of medial limp of the right adrenal gland was present and no longer is seen. Throughout the visualized examination elsewhere, no evidence of metastatic disease. Interim Events: He presents here today for scheduled cycle 8 day 1 gemcitabine. Overall patient has been doing well. No shortness of breath and no chest pain. No fever and no chills. He is however complaining cramps of fingers and feet. It was painful. The fingers get stuck. He denies any abdominal pain, diarrhea or constipation. - Patient Self-Reported Symptoms SR Constitution: Fatigue/Malaise SR eye issues: Eye pain SR ears, nose, mouth, throat issues: Cough, Hoarseness SR respiratory issues: Shortness of breath SR Cardiovascular issues: Shortness of breath with activity or lying flat SR Skin issues: Dry skin SR Musculoskeletal issues: Muscle pain or cramps SR Endocrine issues: Cold intolerance - Additional ROS All systems PM: reviewed and no additional remarkable complaints except as stated Home Medications and Allergies Home Medications Medication Instructions Recorded Confirmed Type albuterol sulfate [Ventolin HFA] 2 puff INHALATION 6XD PRN 06/30/19 01/29/20 History fluticasone propion-salmeterol 1 inh INHALATION BID 06/30/19 01/29/20 History [Advair Diskus] lidocaine-prilocaine 1 applic TOPICAL QWEEK 06/30/19 01/29/20 History ipratropium-albuterol 3 ml INHALATION Q6H PRN 12/11/19 01/29/20 History gemcitabine in 0.9 % NaCl 1,800 1,000 mg IV QWEEK 12/24/19 01/29/20 History mg/180 mL (10 mg/mL) in 0.9 % sod.chlor IV piggyback baclofen 10 mg PO BEDTIME #30 tab 01/29/20 Rx Allergies Allergy/AdvReac Type Severity Reaction Status Date / Time No Known Drug Allergies Allergy Verified 12/24/19 13:25 Exam Vital signs: 01/29/20 10:37 Last Vital Signs Temp 97.9 F 01/29/20 10:12 Pulse 69 01/29/20 10:12 Resp 18 01/29/20 10:12 BP 126/67 01/29/20 10:12 Pulse Ox 94 01/29/20 10:12 Narrative: ECOG 1. Gen: WDWN, NAD, pleasant and cooperative. HEENT: NCAT, EOMI, PERRLA, anicteric sclera. Neck: Supple, No palpable thyromegaly or lymphadenopathy. Respiratory: decreased BS, no wheezes audible. Cardiovascular: RRR, S1 and S2 normal, no M/G/R. Abdomen: Soft, NTND, BS normal, no palpable organomegaly Extremities: No LE pitting edema. Lymphatic: no palpable lymph nodes in the neck, or axillae Neurological: AOx3, CN II-XII grossly intact. No focal motor or sensory deficit. Psychiatric: Normal affect; normal thought process; no depression. Results - Labs Laboratory Last Values WBC 5.3 X10^3/uL (4.5-11.0) 01/29/20 09:30 RBC 4.53 X10^6/uL (4.5-5.9) 01/29/20 09:30 Hgb 13.2 g/dL (13.5-17.5) L 01/29/20 09:30 Hct 40.4 % (41-53) L 01/29/20 09:30 MCV 89.2 fL (80-100) 01/29/20 09:30 MCH 29.1 PG (26-34) 01/29/20 09:30 MCHC 32.6 % (30-36) 01/29/20 09:30 RDW 20.8 % (11.6-14.8) H 01/29/20 09:30 Plt Count 266 X10^3/uL (150-400) 01/29/20 09:30 Neut % (Auto) 60.4 % (50-75) 01/29/20 09:30 Lymph % (Auto) 25.0 % (25-40) 01/29/20 09:30 [place] % (Auto) 11.3 % (3-14) 01/29/20 09:30 Eos % (Auto) 2.5 % (2-4) 01/29/20 09:30 Baso % (Auto) 0.8 % (0-2) 01/29/20 09:30 Neut # (Auto) 3200 /uL (5773-1627) 01/29/20 09:30 Lymph # (Auto) 1300 /uL (7003-0808) 01/29/20 09:30 [place] # (Auto) 600 /uL (0-900) 01/29/20 09:30 Eos # (Auto) 100 /uL (0-450) 01/29/20 09:30 Baso # (Auto) 0 /uL (0-100) 01/29/20 09:30 Total Counted 50 01/08/20 10:30 Seg Neutrophils % 20.0 % (38-70) L 01/08/20 10:30 Band Neutrophils % 2.0 % (3-7) L 01/08/20 10:30 Lymphocytes % (Manual) 60.0 % (25-45) H 01/08/20 10:30 Atypical Lymphs % 4.0 % (-0) H 01/08/20 10:30 Monocytes % (Manual) 10.0 % (2-11) 01/08/20 10:30 Eosinophils % (Manual) 2.0 % (2-4) 01/08/20 10:30 Basophils % (Manual) 2.0 % (0-1) H 01/08/20 10:30 Metamyelocytes % 1.0 % (-0) H 11/13/19 11:05 Neutrophils # (Manual) 396 /uL (2882-9932) L 01/08/20 10:30 Platelet Estimate Increased on smear 07/31/19 10:22 RBC Morphology See below 01/29/20 09:30 Poikilocytosis 1+ H 01/29/20 09:30 Anisocytosis 2+ H 01/29/20 09:30 Sodium 137 mmol/L (137-145) 01/29/20 09:30 Potassium 4.0 mmol/L (3.4-5.1) 01/29/20 09:30 Chloride 103 mmol/L (98-107) 01/29/20 09:30 Carbon Dioxide 29 mmol/L (22-32) 01/29/20 09:30 BUN 14 mg/dL (9-20) 01/29/20 09:30 Creatinine 0.69 mg/dL (0.66-1.25) 01/29/20 09:30 Estimated GFR > 60.0 mL/min (>60) 01/29/20 09:30 BUN/Creatinine Ratio 20.3 (6-22) 01/29/20 09:30 Glucose 151 mg/dL (80-110) H 01/29/20 09:30 Calcium 8.6 mg/dL (8.4-10.2) 01/29/20 09:30 Magnesium 2.2 mg/dL (1.6-2.3) 01/15/20 10:45 Total Bilirubin 0.5 mg/dL (0.2-1.3) 01/29/20 09:30 AST 32 IU/L (17-59) 01/29/20 09:30 ALT 35 IU/L (<50) 01/29/20 09:30 Alkaline Phosphatase 100 U/L (38-126) 01/29/20 09:30 Total Protein 6.7 g/dL (6.3-8.2) 01/29/20 09:30 Albumin 3.8 g/dL (3.5-5.0) 01/29/20 09:30 Globulin 2.9 g/dL (1.7-4.1) 01/29/20 09:30 Albumin/Globulin Ratio 1.3 (1.0-2.8) 01/29/20 09:30 Assessment and Plan (1) Adenocarcinoma of left lung, stage 4 Overview: Stage IV left upper lung poorly differentiated adenocarcinoma, PD-L1 < 1%. EGFR, ALK, MET and RET were negative, diagnosed in 05/2018. He underwent whole brain radiation therapy on 06/28/2018, then received carboplatin (AUC 4), pemetrexed (500mg/2), and pembrolizumab (200 mg) q21 days x 4 cycles followed by Pembrolizumab maintenance. Due to disease progression, patient was started on single agent gemcitabine since 01/03/2019. Assessment: Gemcitabine has been on hold since 11/13/2019 because of abnormal liver function test. CT scan results from 12/04/2019 showed continued improvement of the left hilar mass as well as the right adrenal gland prominence and no evidence of metastasis in other organ systems, indicating that gemcitabine is an effective therapy for his lung cancer. On 12/11/2019, [place] was resumed after LFT normalized. He presents here today for cycle 8 day 1 gemcitabine. Overall he has been doing well. Patient now is considering moving to [facility]. I talked with him that as soon as he has identified a new medical oncologist, we will be able to make the referral. Plan: 1. Ok to proceed to Gemcitabine today, continue as protocol 2. RTC on C9D1, labs per protocol. (2) Port-A-Cath in place Flush every 4-6 weeks
[2020-01-29 10:12] VITALS: BP 126/67; PULSE 69; RESP 18; TEMP 36.6; O2SAT 94
[2020-01-29 10:30] LABS: Add Manual Diff / Slide Review NO; Basophils Absolute Auto 0 /uL (0-100); Basophils Percent Auto 0.8 % (0-2); Eosinophils Absolute Auto 100 /uL (0-450); Eosinophils Percent Auto 2.5 % (2-4); Hematocrit 40.4 % (41-53); Hemoglobin 13.2 g/dL (13.5-17.5); Lymphocytes Absolute Auto 1300 /uL (1100-4500); Mean Corpuscular HGB Conc 32.6 % (30-36); Mean Corpuscular Hemoglobin 29.1 PG (26-34); Mean Corpuscular Volume 89.2 fL (80-100); Monocytes Absolute Auto 600 /uL (0-900); Monocytes Percent Auto 11.3 % (3-14); Neutrophils Absolute Auto 3200 /uL (1500-7000); Neutrophils Percent Auto 60.4 % (50-75); Platelet Count 266 X10^3/uL (150-400); Red Blood Cell Count 4.53 X10^6/uL (4.5-5.9); Red Cell Distribution Width 20.8 % (11.6-14.8); White Blood Cell Count 5.3 X10^3/uL (4.5-11.0)
[2020-01-29 10:38] LABS: Alanine Aminotransferase 35 IU/L (<50); Albumin 3.8 g/dL (3.5-5.0); Albumin Globulin Ratio 1.3 (1.0-2.8); Alkaline Phosphatase 100 U/L (38-126); Aspartate Aminotransferase 32 IU/L (17-59); BUN Creatinine Ratio 20.3 (6-22); Bilirubin Total 0.5 mg/dL (0.2-1.3); Blood Urea Nitrogen 14 mg/dL (9-20); Calcium 8.6 mg/dL (8.4-10.2); Carbon Dioxide 29 mmol/L (22-32); Chloride 103 mmol/L (98-107); Estimated Glomerular Filt Rate > 60.0 mL/min (>60); Globulin 2.9 g/dL (1.7-4.1); Glucose 151 mg/dL (80-110); HEMOLYSIS < 15 (0-50); Sodium 137 mmol/L (137-145); Total Protein 6.7 g/dL (6.3-8.2)
[2020-01-29 11:02] LABS: Anisocytosis 2+
[2020-01-29 11:03] LABS: Poikilocytosis 1+
[2020-01-29] MEDS: SODIUM CHLORIDE 0.9% 100 ML 21 ML IV (11:18)
[2020-01-29] MEDS: DEXAMETHASONE 10 MG/ML VIAL 8 MG IV (11:18)
[2020-01-29] MEDS: ONDANSETRON 8 MG in SODIUM CHLORIDE 0.9% 50 ML 216 ML IV (11:26)
[2020-01-29] MEDS: SODIUM CHLORIDE 0.9% IV (12:07)
[2020-01-29] MEDS: GEMCITABINE HCL IV (12:07)
[2020-02-05 10:53] LABS: Add Manual Diff / Slide Review NO; Basophils Absolute Auto 100 /uL (0-100); Basophils Percent Auto 1.5 % (0-2); Eosinophils Absolute Auto 0 /uL (0-450); Eosinophils Percent Auto 0.9 % (2-4); Hematocrit 38.7 % (41-53); Hemoglobin 12.9 g/dL (13.5-17.5); Lymphocytes Absolute Auto 1300 /uL (1100-4500); Mean Corpuscular HGB Conc 33.4 % (30-36); Mean Corpuscular Hemoglobin 29.6 PG (26-34); Mean Corpuscular Volume 88.6 fL (80-100); Monocytes Absolute Auto 200 /uL (0-900); Monocytes Percent Auto 6.5 % (3-14); Neutrophils Absolute Auto 1900 /uL (1500-7000); Neutrophils Percent Auto 54.1 % (50-75); Platelet Count 268 X10^3/uL (150-400); Red Blood Cell Count 4.36 X10^6/uL (4.5-5.9); Red Cell Distribution Width 20.5 % (11.6-14.8); White Blood Cell Count 3.5 X10^3/uL (4.5-11.0)
[2020-02-05 10:58] VITALS: BP 132/77; PULSE 70; RESP 16; TEMP 36.4; O2SAT 95
[2020-02-05 11:06] LABS: Alanine Aminotransferase 63 IU/L (<50); Albumin 3.8 g/dL (3.5-5.0); Albumin Globulin Ratio 1.3 (1.0-2.8); Alkaline Phosphatase 107 U/L (38-126); Aspartate Aminotransferase 41 IU/L (17-59); BUN Creatinine Ratio 23.4 (6-22); Bilirubin Total 0.5 mg/dL (0.2-1.3); Blood Urea Nitrogen 15 mg/dL (9-20); Calcium 8.7 mg/dL (8.4-10.2); Carbon Dioxide 28 mmol/L (22-32); Chloride 103 mmol/L (98-107); Estimated Glomerular Filt Rate > 60.0 mL/min (>60); Glucose 153 mg/dL (80-110); HEMOLYSIS < 15 (0-50); Potassium 4.1 mmol/L (3.4-5.1); Sodium 137 mmol/L (137-145); Total Protein 6.8 g/dL (6.3-8.2)
[2020-02-05 11:12] LABS: Anisocytosis 2+
[2020-02-05] MEDS: DEXAMETHASONE 10 MG/ML VIAL 8 MG IV (11:36)
[2020-02-05] MEDS: SODIUM CHLORIDE 0.9% 100 ML 21 ML IV (11:36)
[2020-02-05] MEDS: ONDANSETRON 8 MG in SODIUM CHLORIDE 0.9% 50 ML 216 ML IV (11:40)
[2020-02-05] MEDS: GEMCITABINE HCL IV (12:26)
[2020-02-05] MEDS: SODIUM CHLORIDE 0.9% IV (12:26)
--- NOTE | 2020-02-09 15:41 | PC.NURSE ---
[facility] in [place] called to inquire about referral for patientManda Watters contact info: [phone], [phone]. Making provider aware with this note.
--- NOTE | 2020-02-11 13:13 | PC.NURSE ---
Sept appt: Per pt's , they will be keeping all Sept scheduled appts, they will be transferring care after final provider visit this month. Scheduling aware.
[2020-02-12 10:42] LABS: Add Manual Diff / Slide Review NO; Basophils Absolute Auto 0 /uL (0-100); Basophils Percent Auto 1.2 % (0-2); Eosinophils Absolute Auto 0 /uL (0-450); Eosinophils Percent Auto 0.3 % (2-4); Hematocrit 38.1 % (41-53); Hemoglobin 12.5 g/dL (13.5-17.5); Lymphocytes Absolute Auto 1200 /uL (1100-4500); Lymphocytes Percent Auto 36.6 % (25-40); Mean Corpuscular HGB Conc 32.9 % (30-36); Mean Corpuscular Hemoglobin 29.3 PG (26-34); Mean Corpuscular Volume 88.9 fL (80-100); Monocytes Absolute Auto 100 /uL (0-900); Monocytes Percent Auto 3.7 % (3-14); Neutrophils Absolute Auto 1900 /uL (1500-7000); Neutrophils Percent Auto 58.2 % (50-75); Platelet Count 115 X10^3/uL (150-400); Red Blood Cell Count 4.28 X10^6/uL (4.5-5.9); Red Cell Distribution Width 20.1 % (11.6-14.8); White Blood Cell Count 3.3 X10^3/uL (4.5-11.0)
[2020-02-12 10:45] VITALS: BP 120/68; PULSE 67; RESP 18; TEMP 36.6; O2SAT 97
[2020-02-12 10:53] LABS: Alanine Aminotransferase 56 IU/L (<50); Albumin 3.7 g/dL (3.5-5.0); Albumin Globulin Ratio 1.3 (1.0-2.8); Alkaline Phosphatase 99 U/L (38-126); Aspartate Aminotransferase 31 IU/L (17-59); BUN Creatinine Ratio 22.1 (6-22); Bilirubin Total 0.4 mg/dL (0.2-1.3); Blood Urea Nitrogen 15 mg/dL (9-20); Calcium 8.5 mg/dL (8.4-10.2); Carbon Dioxide 28 mmol/L (22-32); Chloride 106 mmol/L (98-107); Estimated Glomerular Filt Rate > 60.0 mL/min (>60); Globulin 2.8 g/dL (1.7-4.1); Glucose 130 mg/dL (80-110); HEMOLYSIS < 15 (0-50); Potassium 3.8 mmol/L (3.4-5.1); Sodium 138 mmol/L (137-145); Total Protein 6.5 g/dL (6.3-8.2)
[2020-02-12 11:05] LABS: Anisocytosis 2+
[2020-02-12] MEDS: DEXAMETHASONE 10 MG/ML VIAL 8 MG IV (11:25)
[2020-02-12] MEDS: SODIUM CHLORIDE 0.9% 100 ML 21 ML IV (11:25)
[2020-02-12] MEDS: ONDANSETRON 8 MG in SODIUM CHLORIDE 0.9% 50 ML 216 ML IV (11:28)
[2020-02-12] MEDS: SODIUM CHLORIDE 0.9% IV (12:10)
[2020-02-12] MEDS: GEMCITABINE HCL IV (12:10)
[2020-02-26 08:46] VITALS: BP 114/77; PULSE 69; RESP 18; TEMP 36.6; O2SAT 96
[2020-02-26 08:57] LABS: Alanine Aminotransferase 34 IU/L (<50); Albumin 3.6 g/dL (3.5-5.0); Albumin Globulin Ratio 1.3 (1.0-2.8); Alkaline Phosphatase 105 U/L (38-126); Aspartate Aminotransferase 31 IU/L (17-59); BUN Creatinine Ratio 21.9 (6-22); Bilirubin Total 0.4 mg/dL (0.2-1.3); Blood Urea Nitrogen 14 mg/dL (9-20); Calcium 8.3 mg/dL (8.4-10.2); Carbon Dioxide 27 mmol/L (22-32); Chloride 104 mmol/L (98-107); Estimated Glomerular Filt Rate > 60.0 mL/min (>60); Globulin 2.7 g/dL (1.7-4.1); Glucose 167 mg/dL (80-110); HEMOLYSIS < 15 (0-50); Potassium 4.1 mmol/L (3.4-5.1); Sodium 138 mmol/L (137-145); Total Protein 6.3 g/dL (6.3-8.2)
[2020-02-26 09:05] LABS: Add Manual Diff / Slide Review NO; Basophils Absolute Auto 0 /uL (0-100); Basophils Percent Auto 0.8 % (0-2); Eosinophils Absolute Auto 100 /uL (0-450); Eosinophils Percent Auto 1.6 % (2-4); Hemoglobin 12.4 g/dL (13.5-17.5); Lymphocytes Absolute Auto 1200 /uL (1100-4500); Lymphocytes Percent Auto 28.6 % (25-40); Mean Corpuscular HGB Conc 32.5 % (30-36); Mean Corpuscular Hemoglobin 29.6 PG (26-34); Monocytes Absolute Auto 700 /uL (0-900); Monocytes Percent Auto 16.3 % (3-14); Neutrophils Absolute Auto 2100 /uL (1500-7000); Neutrophils Percent Auto 52.7 % (50-75); Platelet Count 432 X10^3/uL (150-400); Red Blood Cell Count 4.18 X10^6/uL (4.5-5.9); Red Cell Distribution Width 20.9 % (11.6-14.8); White Blood Cell Count 4.1 X10^3/uL (4.5-11.0)
--- NOTE | 2020-02-26 09:05 | P.PNONC_ITS ---
PN -Subjective Interval history: ID/CC: 69-year-old gentleman with metastatic adenocarcinoma of the lung. Treatment Summary: 1. Whole brain radiation therapy completed on 06/28/2018 2. Carboplatin (AUC 4), pemetrexed (500mg/2), and pembrolizumab (200 mg) q21 days x 4 cycles 3. Pembrolizumab maintenance discontinued in 12/2018 due to disease progression 4. Gemciabine 1000 mg/m2 days 1, 8, 15 on a 21-days cycles started on 01/03/2019 History of Present Illness: Kin Campbell is a 69 year old male with past significant smoking history (quitted about in 2009), and COPD. He had been followed at [facility] for metastatic left upper lung adenocarcinoma before He moved to [facility] from [facility]. Kin initially presented with sudden onset left extremity weakness and headache in 05/2018. MR brain on 05/31/2018 showed a 2.1 cm mass in the right posterior parietal lobe with hemorrhage. CT CAP on 06/01/2018 showed a large left suprahilar/paramediastinal mass with extension to the mediastinum and moderate mediastinal adenopathy. There was a 2.5 cm right adrenal mass. He was flown to [facility] on 06/01/2018. He underwent EBUS/FNA on 06/03/2018 and pathology showed malignant epithelial cells consistent with poorly differentiated adenocarcinoma, PD-L1 < 1%. EGFR, ALK, MET and RET were negative. He later proceeded to whole brain radiation therapy completed on 06/28/2018. He then was treated with carboplatin (AUC 4), pemetrexed (500mg/2), and pembrolizumab (200 mg) q21 days x 4 cycles followed by Pembrolizumab maintenance On 12/26/2018, CT CAP showed evidence of disease progression including increase in the size of left upper lobe mass, mediastinal lymphadenopathy, and right adrenal gland nodule. Pembolizumab was then discontinued and patient was started on single agent Gemcitabine 1000 mg/m2 iv on days 1, 8, 15 on a 21-days cycles on 01/03/2019. Repeat CT on 03/18/2019 showed decrease in the ADRIA mass and the right adrenal lesion. After chemotherapy on 05/23/2019, he moved to [place]. On 06/16/2019 MRI brain showed stable brain lesions. CT CAP showed interval decrease in size of left upper lobe mass, mediastinal lymphadenopathy, and right adrenal gland. On 09/18/2019, patient underwent MR brain that showed no evidence of disease recurrence or metastasis. On the same day patient also underwent CT chest abdomen and pelvis that showed the left supra hilar soft tissue mass measuring about 4.4 cm in maximal diameter, small bilateral hilar and mediastinal lymph nodes which do not meet size criteria for adenopathy, 10 mm indeterminate right adrenal nodule likely adenoma and no other evidence of metastatic disease below the diaphragm. On 12/04/2019, CT chest abdomen pelvis showed small interval reduction in size of a left superior hilar mass, a prior slight prominence of medial limp of the right adrenal gland was present and no longer is seen. Throughout the visual ized examination elsewhere, no evidence of metastatic disease. Interim Events: He presents here today for scheduled cycle 9 day 1 gemcitabine. Overall patient has been doing well. No shortness of breath and no chest pain. No fever and no chills. Patient underwent CT chest abdomen and pelvis with contrast on 02/18/2020. It showed the left suprahilar mass appeared to have slightly increased in size compared to the previous study, measuring up to 4.6 x 1.9 x 3.2 cm compared to approximately 4.3 x 1.6 x 3.2 cm previously at comparable levels. Elsewhere, no definite evidence of new metastatic disease. - Patient Self-Reported Symptoms SR Constitution: Fatigue/Malaise SR eye issues: Eye pain SR ears, nose, mouth, throat issues: Cough, Hoarseness SR respiratory issues: Shortness of breath SR Cardiovascular issues: Shortness of breath with activity or lying flat SR Skin issues: Dry skin SR Musculoskeletal issues: Muscle pain or cramps SR Endocrine issues: Cold intolerance - Additional ROS All systems PM: reviewed and no additional remarkable complaints except as stated Home Medications and Allergies Home Medications Medication Instructions Recorded Confirmed Type albuterol sulfate [Ventolin HFA] 2 puff INHALATION 6XD PRN 06/30/19 01/29/20 History fluticasone propion-salmeterol 1 inh INHALATION BID 06/30/19 01/29/20 History [Advair Diskus] lidocaine-prilocaine 1 applic TOPICAL QWEEK 01/20/20 08/20/20 History ipratropium-albuterol 3 ml INHALATION Q6H PRN 12/11/19 01/29/20 History gemcitabine in 0.9 % NaCl 1,800 1,000 mg IV QWEEK 12/24/19 01/29/20 History mg/180 mL (10 mg/mL) in 0.9 % sod.chlor IV piggyback baclofen 10 mg PO BEDTIME #30 tab 01/29/20 Rx Allergies Allergy/AdvReac Type Severity Reaction Status Date / Time No Known Drug Allergies Allergy Verified 12/24/19 13:25 Exam Vital signs: Last Vital Signs Temp 98 F 02/26/20 08:46 Pulse 69 02/26/20 08:46 Resp 18 02/26/20 08:46 BP 114/77 02/26/20 08:46 Pulse Ox 96 02/26/20 08:46 Narrative: ECOG 1. Gen: WDWN, NAD, pleasant and cooperative. HEENT: NCAT, EOMI, PERRLA, anicteric sclera. Neck: Supple, No palpable thyromegaly or lymphadenopathy. Respiratory: decreased BS, no wheezes audible. Cardiovascular: RRR, S1 and S2 normal, no M/G/R. Abdomen: Soft, NTND, BS normal, no palpable organomegaly Extremities: No LE pitting edema. Lymphatic: no palpable lymph nodes in the neck, or axillae Neurological: AOx3, CN II-XII grossly intact. No focal motor or sensory deficit. Psychiatric: Normal affect; normal thought process; no depression. Results - Labs Laboratory Last Values WBC 4.1 X10^3/uL (4.5-11.0) L 02/26/20 08:35 RBC 4.18 X10^6/uL (4.5-5.9) L 02/26/20 08:35 Hgb 12.4 g/dL (13.5-17.5) L 02/26/20 08:35 Hct 38.0 % (41-53) L 02/26/20 08:35 MCV 91.0 fL (80-100) 02/26/20 08:35 MCH 29.6 PG (26-34) 02/26/20 08:35 MCHC 32.5 % (30-36) 02/26/20 08:35 RDW 20.9 % (11.6-14.8) H 02/26/20 08:35 Plt Count 432 X10^3/uL (150-400) H 02/26/20 08:35 Neut % (Auto) 52.7 % (50-75) 02/26/20 08:35 Lymph % (Auto) 28.6 % (25-40) 02/26/20 08:35 [place] % (Auto) 16.3 % (3-14) H 02/26/20 08:35 Eos % (Auto) 1.6 % (2-4) L 02/26/20 08:35 Baso % (Auto) 0.8 % (0-2) 02/26/20 08:35 Neut # (Auto) 2100 /uL (4842-9194) 02/26/20 08:35 Lymph # (Auto) 1200 /uL (6420-4226) 02/26/20 08:35 [place] # (Auto) 700 /uL (0-900) 02/26/20 08:35 Eos # (Auto) 100 /uL (0-450) 02/26/20 08:35 Baso # (Auto) 0 /uL (0-100) 02/26/20 08:35 Total Counted 50 01/08/20 10:30 Seg Neutrophils % 20.0 % (38-70) L 01/08/20 10:30 Band Neutrophils % 2.0 % (3-7) L 01/08/20 10:30 Lymphocytes % (Manual) 60.0 % (25-45) H 01/08/20 10:30 Atypical Lymphs % 4.0 % (-0) H 01/08/20 10:30 Monocytes % (Manual) 10.0 % (2-11) 01/08/20 10:30 Eosinophils % (Manual) 2.0 % (2-4) 01/08/20 10:30 Basophils % (Manual) 2.0 % (0-1) H 01/08/20 10:30 Metamyelocytes % 1.0 % (-0) H 11/13/19 11:05 Neutrophils # (Manual) 396 /uL (0485-1601) L 01/08/20 10:30 Platelet Estimate Increased on smear 07/31/19 10:22 RBC Morphology Not Reportable 02/12/20 10:35 Poikilocytosis 1+ H 01/29/20 09:30 Anisocytosis 2+ H 02/12/20 10:35 Sodium 138 mmol/L (137-145) 02/26/20 08:35 Potassium 4.1 mmol/L (3.4-5.1) 02/26/20 08:35 Chloride 104 mmol/L (98-107) 02/26/20 08:35 Carbon Dioxide 27 mmol/L (22-32) 02/26/20 08:35 BUN 14 mg/dL (9-20) 02/26/20 08:35 Creatinine 0.64 mg/dL (0.66-1.25) L 02/26/20 08:35 Estimated GFR > 60.0 mL/min (>60) 02/26/20 08:35 BUN/Creatinine Ratio 21.9 (6-22) 02/26/20 08:35 Glucose 167 mg/dL (80-110) H 02/26/20 08:35 Calcium 8.3 mg/dL (8.4-10.2) L 02/26/20 08:35 Magnesium 2.2 mg/dL (1.6-2.3) 01/15/20 10:45 Total Bilirubin 0.4 mg/dL (0.2-1.3) 02/26/20 08:35 AST 31 IU/L (17-59) 02/26/20 08:35 ALT 34 IU/L (<50) 02/26/20 08:35 Alkaline Phosphatase 105 U/L (38-126) 02/26/20 08:35 Total Protein 6.3 g/dL (6.3-8.2) 02/26/20 08:35 Albumin 3.6 g/dL (3.5-5.0) 02/26/20 08:35 Globulin 2.7 g/dL (1.7-4.1) 02/26/20 08:35 Albumin/Globulin Ratio 1.3 (1.0-2.8) 02/26/20 08:35 Assessment and Plan (1) Adenocarcinoma of left lung, stage 4 Overview: Stage IV left upper lung poorly differentiated adenocarcinoma, PD-L1 < 1%. EGFR, ALK, MET and RET were negative, diagnosed in 05/2018. He underwent whole brain radiation therapy on 06/28/2018, then received carboplatin (AUC 4), pemetrexed (500mg/2), and pembrolizumab (200 mg) q21 days x 4 cycles followed by Pembroli zumab maintenance. Due to disease progression, patient was started on single agent gemcitabine since 01/03/2019. Assessment: Gemcitabine was put on hold on 11/13/2019 because of abnormal liver function test. CT scan results from 12/04/2019 showed continued improvement of the left hilar mass as well as the right adrenal gland prominence and no evidence of metastasis in other organ systems, indicating that gemcitabine is an effective therapy for his lung cancer. On 12/11/2019, Gemcitabie was resumed after LFT normalized. He presents here today for cycle 9 day 1 gemcitabine. Overall, patient has been doing well. I reviewed the CT scan from 02/18/2020 with the patient. It is stable and no evidence of progression. I also reviewed the lab results with the patient. CBCs and CMPs are unremarkable. I will proceed with scheduled cycle 9 gemcitabine. The treatment today would be his last treatment at our center. Patient and his are moving to [facility]. Plan: 1. Ok to proceed to Gemcitabine today 2. Care will be transferred to [facility], Dr. Santos Del Angel MD. (2) Port-A-Cath in place Flush every 4-6 weeks
[2020-02-26 10:07] LABS: Anisocytosis 2+; Platelet Estimate Adequate on smear; Poikilocytosis 1+
[2020-02-26] MEDS: SODIUM CHLORIDE 0.9% 100 ML 30 ML IV (10:45)
[2020-02-26] MEDS: ONDANSETRON 8 MG in SODIUM CHLORIDE 0.9% 50 ML 216 ML IV (10:49)
[2020-02-26] MEDS: DEXAMETHASONE 10 MG/ML VIAL 8 MG IV (10:50)
[2020-02-26] MEDS: GEMCITABINE HCL IV (11:29)
[2020-02-26] MEDS: SODIUM CHLORIDE 0.9% IV (11:29)
--- NOTE | 2020-03-02 16:03 | ONC.SCHED ---
Faxed records to [facility], as patient is transferring care there.
== END ==
PROVIDERS: PCP Family Medicine; Visit Provider Internal Medicine Hematology & Oncology
DX: Z51.11 Encounter for antineoplastic chemotherapy (principal); C34.12 Malignant neoplasm of upper lobe, left bronchus or lung; C79.31 Secondary malignant neoplasm of brain; J44.9 Chronic obstructive pulmonary disease, unspecified; Z87.891 Personal history of nicotine dependence; Z95.828 Presence of other vascular implants and grafts
CPT/HCPCS: 36415; 36591; 70553; 71260; 74177; 80053; 83735; 85025; 96367; 96374; 96375; 96376; 96413; 96415; 99204; 99214; A9579; J1100; J2405; J2997; J9201; Q9967